=== PATIENT | male | born 1960 | race Caucasian/White ===

== ENCOUNTER 2017-09-22 23:06 | Observation (INO) ==
[2017-09-22] MEDS ORDERED: Aspirin 81 MG TAB.CHEW PO ONE (23:09)
[2017-09-22 23:53] LABS: Bilirubin,Urine Negative (Negative); Blood,Urine Negative (Negative); Clarity,Urine Clear (Clear); Color,Urine Yellow (Yellow); Glucose,Urine (UA) Normal (Normal); Ketones,Urine Negative (Negative); Leukocyte Esterase,Urine Negative (Negative); Nitrite,Urine Negative (Negative); Protein,Urine Trace mg/dL (Neg-Trace); Specific Gravity,Urine 1.028 (1.010-1.025); Urobilinogen,Urine Normal (Normal)
[2017-09-22 23:55] LABS: Bacteria,Urine None Seen per hpf (None-Few); Hyaline Casts,Urine None Seen per lpf (None-Few); Squamous Epithelial Cell,Urine Many per lpf (None-Few); WBC,Urine 0-3 per hpf (0-3)
[2017-09-23 00:13] LABS: Prothrombin Time 10.5 Seconds (9.4-12.1)
[2017-09-23 00:14] LABS: Basophils % 0.4 %; Eosinophils # 0.3 K/mcL (0.0-0.6); Eosinophils % 2.8 %; Hematocrit 43.6 % (37.5-50.1); Hemoglobin 14.8 g/dL (12.9-16.9); Immature Granulocytes % 0.8 % (0-4); Lymphocytes # 2.7 K/mcL (0.6-4.6); Lymphocytes % 24.1 %; Mean Corpuscular HGB Conc 33.9 g/dL (31.6-35.5); Mean Corpuscular Hemoglobin 31.3 pg (28.0-33.3); Mean Corpuscular Volume 92.2 fL (83.0-100.0); Mean Platelet Volume 10.1 fL (9.4-12.4); Monocytes # 1.2 K/mcL (0.0-1.3); Monocytes % 10.7 %; Neutrophils # 6.7 K/mcL (1.6-8.9); Platelet Count 307 K/mcL (140-400); Red Blood Count 4.73 M/mcL (4.19-5.50); Red Cell Distribution Width 12.4 % (11.5-14.5); Segmented Neutrophils % 61.2 %
--- NOTE | 2017-09-23 00:26 | Emergency Department Note ---
Disposition Clinical Impression: Chest pain Qualifiers: Chest pain type: unspecified Qualified Code(s): R07.9 - Chest pain, unspecified Disposition: Admitted As Inpatient Condition: Undetermined Chest Pain HPI - General Chief Complaint: ED Chest Pain Stated Complaint: chest pain Time Seen by Provider: 09/22/17 23:09 Source: patient, EMS Mode of arrival: EMS Limitations: no limitations Vital Signs Reviewed: Yes Nursing Notes Reviewed: Yes - History of Present Illness HPI Narrative: 56-year-old male with a history of hypertension, GERD, EBONI, bipolar disorder, HLD, former smoker presents to the emergency department via EMS for complaints of shortness of breath with exertion followed by chest pain. This chest pain is described as a pressure right in the center of his chest that goes all the way through to his back with radiation down his right arm. This occurred while he was walking quickly while at work. Patient states intermittently over the last week he has had similar symptoms always precluded by shortness of breath with exertion been getting the chest pain coming down and sitting has made the pain go away every time but today. In the EMS patient was given 1 nitroglycerin that was ineffective for his chest pain. Patient denies any recent illnesses, fever, chills, coughing, wheezing, difficulty in swallowing, abdominal pain, edema. Patient states prior to this week he has never had any of these symptoms before. Pt complaint: chest pain Onset (ago): Just [employer] Duration: constant Onset: during exertion Pain Location: substernal, other Severity: mild Severity scale (1-10): 3 Quality: other (Pressure) Pain Radiation: RUE Improves with: rest Worsens with: exertion Treatments prior to arrival chest pain: aspirin, nitroglycerin - Related Data Previous Rx's Medication Instructions Recorded cephALEXin [Keflex] 500 mg PO QID #40 capsule 05/07/15 Allergies Allergy/AdvReac Type Severity Reaction Status Date / Time Sulfa (Sulfonamide AdvReac Hives Verified 05/07/15 18:53 Antibiotics) All systems ED: reviewed and negative except as stated. Review of Systems: As Per HPI Chest Pain PMH - Past Medical History Medical history: Reports: GERD, hypertension Surgical history: Reports: other Psychiatric history: Reports: anxiety, bipolar, depression - Social History Smoking Status: Light tobacco smoker Alcohol use: Reports: none, occasionally Drug use: Reports: none Physical Exam - General Limitations: no limitations General appearance: alert, in no apparent distress, anxious - Head Head exam: atraumatic, normocephalic, normal inspection - Eye Eye exam: Present: normal appearance, PERRL, EOMI - ENT ENT exam: normal exam, normal oropharynx, mucous membranes moist - Neck Neck exam: Present: normal inspection, full ROM, trachea midline - Chest Chest inspection: Present: normal inspection, symmetric chest wall rise - Respiratory Respiratory exam: Present: normal lung sounds bilaterally - Cardiovascular Cardiovascular exam: Present: regular rate, normal rhythm, normal heart sounds - Abdominal Exam Abdominal exam: Present: soft, Non-Tender. Absent: tenderness, distention, guarding, rebound, rigidity - Extremities Exam Extremities exam: Present: normal inspection, full ROM. Absent: tenderness, pedal edema - Expanded Lower Extremity Exam Neurovascular/Tendon exam: Absent: motor deficit, sensory deficit, tendon deficit - Back Exam Back exam: Present: normal inspection, full ROM. Absent: tenderness - Neurological Exam Neurological exam: Present: alert, oriented X3 - Psychiatric Psychiatric exam: Present: anxious - Skin Skin exam: Present: warm, dry, intact, normal color Course Course Narrative: Abdominal obese 56-year-old male who appears anxious. He is nontoxic appearing. Respirations are easy and even. Physical exam benign, low-grade temp of 99, normotensive. EKG reveals sinus rhythm with a ventricular rate of 94, normal axis, normal intervals. He was given 324 mg of aspirin and nitroglycerin with EMS. - Reevaluation(s) Reevaluation #1: D-dimer reveals 695, rest of labs benign. UA benign. Chest x-ray benign. We will get CTA of the chest rule out pulmonary embolism. Patient resting comfortably in his room, no acute distress noted. No change in physical assessment. Time: 01:00 Reevaluation #2: CT reveals no pulmonary embolus however does show asthma. Patient heart score is 6 even with a negative troponin. Repeat EKG without changes. I feel patient would benefit from admission for continued observation as chest pain continues with minimal decreasing, we will attempt morphine. Pt will need cardiology workup for angina. Dr. Moya agreeable to plan of care, he spoke with hospitalist is agreeable to admission. Time: 01:49 Vital Signs Temperature 99.0 F 09/22/17 23:13 Pulse Rate 93 09/22/17 23:13 Respiratory Rate 24 09/22/17 23:13 Blood Pressure 166/94 09/22/17 23:13 O2 Sat by Pulse Oximetry 98 09/22/17 23:13 Temperature 98.7 F 09/23/17 03:34 Pulse Rate 89 09/23/17 03:34 Respiratory Rate 16 09/23/17 03:34 Blood Pressure 128/88 09/23/17 03:34 O2 Sat by Pulse Oximetry 96 09/23/17 04:05 Oxygen Delivery Oxygen Delivery Room Air Chest Pain - Differential Diagnosis Likely: unstable angina pectoris, atypical chest pain, chest pain. Unlikely: fracture of rib, pneumothorax, stable angina, st elevation myocardial infraction , costalchondritis, biliary colic - Lab Data Lab results reviewed: Yes I reviewed the patient's lab results. Result diagrams: 09/22/17 23:23 09/22/17 23:23 Lab Results 09/22/17 09/22/17 09/22/17 Range/Units 23:23 23:23 23:23 WBC 11.0 (4.3-11.1) K/mcL RBC 4.73 (4.19-5.50) M/mcL Hgb 14.8 (12.9-16.9) g/dL Hct 43.6 (37.5-50.1) % MCV 92.2 (83.0-100.0) fL MCH 31.3 (28.0-33.3) pg MCHC 33.9 (31.6-35.5) g/dL RDW 12.4 (11.5-14.5) % Plt Count 307 (140-400) K/mcL MPV 10.1 (9.4-12.4) fL Immature Gran % 0.8 (0-4) % Seg Neutrophils % 61.2 % Lymphocytes % 24.1 % Monocytes % 10.7 % Eosinophils % 2.8 % Basophils % 0.4 % Neutrophils # 6.7 (1.6-8.9) K/mcL Lymphocytes # 2.7 (0.6-4.6) K/mcL Monocytes # 1.2 (0.0-1.3) K/mcL Eosinophils # 0.3 (0.0-0.6) K/mcL Basophils # 0.0 (0.0-0.2) K/mcL PT 10.5 (9.4-12.1) Seconds INR 1.0 APTT 33.0 (26.0-36.0) Seconds D-Dimer 695 H (0-500) ng/mLFEU Sodium 142 (136-145) mEq/L Potassium 4.1 (3.5-5.1) mEq/L Chloride 105 (98-107) mEq/L Carbon Dioxide 21 L (23-29) mEq/L BUN 14 (6-20) mg/dL Creatinine 1.30 (0.70-1.30) mg/dL Est GFR ( Amer) > 60 (> 60) Est GFR (Non-Af Amer) 58 L (> 60) BUN/Creatinine Ratio 11 (6-26) Glucose 90 (70-105) mg/dL Calculated Osmolality 294 (280-300) Calcium 9.8 (8.6-10.3) mg/dL Troponin I < 0.03 (< 0.04) ng/mL Urine Color (Yellow) Urine Clarity (Clear) Urine pH (5.0-8.0) pH Units Ur Specific [place] (1.010-1.025) Urine Protein (Neg-Trace) mg/dL Urine Glucose (UA) (Normal) mg/dL Urine Ketones (Negative) mg/dL Urine Blood (Negative) Urine Nitrite (Negative) Urine Bilirubin (Negative) Urine Urobilinogen (Normal) mg/dL Ur Leukocyte Esterase (Negative) Urine Microscopic RBC (0-3) per hpf Urine Microscopic WBC (0-3) per hpf Ur Squamous Epith Cells (None-Few) per lpf Urine Bacteria (None-Few) per hpf Hyaline Casts (None-Few) per lpf Ur Culture Indicated? (NO) 09/22/17 09/23/17 Range/Units 23:44 05:18 WBC (4.3-11.1) K/mcL RBC (4.19-5.50) M/mcL Hgb (12.9-16.9) g/dL Hct (37.5-50.1) % MCV (83.0-100.0) fL MCH (28.0-33.3) pg MCHC (31.6-35.5) g/dL RDW (11.5-14.5) % Plt Count (140-400) K/mcL MPV (9.4-12.4) fL Immature Gran % (0-4) % Seg Neutrophils % % Lymphocytes % % Monocytes % % Eosinophils % % Basophils % % Neutrophils # (1.6-8.9) K/mcL Lymphocytes # (0.6-4.6) K/mcL Monocytes # (0.0-1.3) K/mcL Eosinophils # (0.0-0.6) K/mcL Basophils # (0.0-0.2) K/mcL PT (9.4-12.1) Seconds INR APTT (26.0-36.0) Seconds D-Dimer (0-500) ng/mLFEU Sodium (136-145) mEq/L Potassium (3.5-5.1) mEq/L Chloride (98-107) mEq/L Carbon Dioxide (23-29) mEq/L BUN (6-20) mg/dL Creatinine (0.70-1.30) mg/dL Est GFR ( Amer) (> 60) Est GFR (Non-Af Amer) (> 60) BUN/Creatinine Ratio (6-26) Glucose (70-105) mg/dL Calculated Osmolality (280-300) Calcium (8.6-10.3) mg/dL Troponin I < 0.03 (< 0.04) ng/mL Urine Color Yellow (Yellow) Urine Clarity Clear (Clear) Urine pH 6.0 (5.0-8.0) pH Units Ur Specific [place] 1.028 H (1.010-1.025) Urine Protein Trace (Neg-Trace) mg/dL Urine Glucose (UA) Normal (Normal) mg/dL Urine Ketones Negative (Negative) mg/dL Urine Blood Negative (Negative) Urine Nitrite Negative (Negative) Urine Bilirubin Negative (Negative) Urine Urobilinogen Normal (Normal) mg/dL Ur Leukocyte Esterase Negative (Negative) Urine Microscopic RBC 3-5 H (0-3) per hpf Urine Microscopic WBC 0-3 (0-3) per hpf Ur Squamous Epith Cells Many H (None-Few) per lpf Urine Bacteria None Seen (None-Few) per hpf Hyaline Casts None Seen (None-Few) per lpf Ur Culture Indicated? NO (NO) - Radiology Data Radiology results reviewed: Yes I reviewed the patient's radiology results. - EKG Data EKG attestation: Yes I reviewed and interpreted this EKG. Heart Score - Score History: Highly Suspicious EKG: Normal Age: 45-65 Risk Factors: Equal/Greater than 3 risk factor or history of atherosclerotic disease Troponin: 1-3x normal limit HEART Score Total: 6
[2017-09-23 00:29] LABS: BUN/Creatinine Ratio 11 (6-26); Blood Urea Nitrogen 14 mg/dL (6-20); Calcium 9.8 mg/dL (8.6-10.3); Carbon Dioxide 21 mEq/L (23-29); Chloride 105 mEq/L (98-107); Glucose 90 mg/dL (70-105); Osmolality,Calculated 294 (280-300); Potassium 4.1 mEq/L (3.5-5.1); Sodium 142 mEq/L (136-145); eGFR For African Americans > 60 (> 60); eGFR For Non-African Americans 58 (> 60)
[2017-09-23 00:31] LABS: Troponin I < 0.03 ng/mL (< 0.04)
[2017-09-23] MEDS ORDERED: Isovue-370 500 ML INFUS..BTL IV ONE (00:41)
[2017-09-23] MEDS ORDERED: Nitroglycerin 1 INCH/GM PACKET TP ONE (01:08)
[2017-09-23] MEDS ORDERED: Nitroglycerin 0.4 MG TAB.SUBL SL PRN (01:10)
--- NOTE | 2017-09-23 01:13 | Emergency Department Note ---
Disposition Clinical Impression: Chest pain Qualifiers: Chest pain type: unspecified Qualified Code(s): R07.9 - Chest pain, unspecified Disposition: Admitted As Inpatient Condition: Good General Adult HPI - General Chief complaint: ED Chest Pain Stated complaint: chest pain Time Seen by Provider: 09/22/17 23:09 Source: patient, EMS Mode of arrival: EMS Limitations: no limitations - History of Present Illness Pain Scale: 3 - Related Data Home Medications Medication Instructions Recorded Confirmed Armodafinil 250 mg PO DAILY 09/23/17 09/23/17 Brexpiprazole [Rexulti] 3 mg PO DAILY 09/23/17 09/23/17 Fenofibrate Nanocrystallized 160 mg PO DAILY 09/23/17 09/23/17 [Triglide] Ondansetron ODT [Zofran ODT] 4 mg PO Q8H PRN 09/23/17 09/23/17 Pantoprazole Sodium 40 mg PO DAILY 09/23/17 09/23/17 Pravastatin Sodium [Pravachol] 80 mg PO HS 09/23/17 09/23/17 Ranitidine HCl [Acid Food Preparer] 150 mg PO BID 09/23/17 09/23/17 Valsartan/Hydrochlorothiazide 1 tab PO DAILY 09/23/17 09/23/17 [Diovan Hct 160-12.5 mg Tab] Vortioxetine Hydrobromide 20 mg PO DAILY 09/23/17 09/23/17 [Trintellix] lamoTRIgine [Lamotrigine] 200 mg PO DAILY 09/23/17 09/23/17 Previous Rx's Medication Instructions Recorded Aspirin 81 mg PO DAILY #30 tab.chew 09/24/17 Allergies Allergy/AdvReac Type Severity Reaction Status Date / Time Sulfa (Sulfonamide AdvReac Hives Verified 09/23/17 11:56 Antibiotics) Past Medical History - Past Medical History Medical history: Reports: GERD, hypertension Surgical history: Reports: other Psychiatric history: Reports: anxiety, bipolar, depression - Social History Smoking Status: Light tobacco smoker Smokeless Tobacco Status: No Alcohol use: Reports: none, occasionally Drug use: Reports: none Physical Exam - General Limitations: no limitations General appearance: alert, in no apparent distress, anxious Course Vital Signs Temperature 99.0 F 09/22/17 23:13 Pulse Rate 93 09/22/17 23:13 Respiratory Rate 24 09/22/17 23:13 Blood Pressure 166/94 09/22/17 23:13 O2 Sat by Pulse Oximetry 98 09/22/17 23:13 Temperature 98.3 F 09/24/17 11:05 Pulse Rate 75 09/24/17 11:05 Respiratory Rate 20 09/24/17 11:05 Blood Pressure 125/78 09/24/17 11:05 O2 Sat by Pulse Oximetry 97 09/24/17 11:05 Oxygen Delivery Oxygen Delivery Room Air Medical Decision Making - Lab Data Result diagrams: 09/24/17 04:11 09/24/17 04:11 Lab Results 09/22/17 09/22/17 09/22/17 Range/Units 23:23 23:23 23:23 WBC 11.0 (4.3-11.1) K/mcL RBC 4.73 (4.19-5.50) M/mcL Hgb 14.8 (12.9-16.9) g/dL Hct 43.6 (37.5-50.1) % MCV 92.2 (83.0-100.0) fL MCH 31.3 (28.0-33.3) pg MCHC 33.9 (31.6-35.5) g/dL RDW 12.4 (11.5-14.5) % Plt Count 307 (140-400) K/mcL MPV 10.1 (9.4-12.4) fL Immature Gran % 0.8 (0-4) % Seg Neutrophils % 61.2 % Lymphocytes % 24.1 % Monocytes % 10.7 % Eosinophils % 2.8 % Basophils % 0.4 % Neutrophils # 6.7 (1.6-8.9) K/mcL Lymphocytes # 2.7 (0.6-4.6) K/mcL Monocytes # 1.2 (0.0-1.3) K/mcL Eosinophils # 0.3 (0.0-0.6) K/mcL Basophils # 0.0 (0.0-0.2) K/mcL PT 10.5 (9.4-12.1) Seconds INR 1.0 APTT 33.0 (26.0-36.0) Seconds D-Dimer 695 H (0-500) ng/mLFEU Sodium 142 (136-145) mEq/L Potassium 4.1 (3.5-5.1) mEq/L Chloride 105 (98-107) mEq/L Carbon Dioxide 21 L (23-29) mEq/L BUN 14 (6-20) mg/dL Creatinine 1.30 (0.70-1.30) mg/dL Est GFR ( Amer) > 60 (> 60) Est GFR (Non-Af Amer) 58 L (> 60) BUN/Creatinine Ratio 11 (6-26) Glucose 90 (70-105) mg/dL Calculated Osmolality 294 (280-300) Calcium 9.8 (8.6-10.3) mg/dL Troponin I < 0.03 (< 0.04) ng/mL Urine Color (Yellow) Urine Clarity (Clear) Urine pH (5.0-8.0) pH Units Ur Specific [place] (1.010-1.025) Urine Protein (Neg-Trace) mg/dL Urine Glucose (UA) (Normal) mg/dL Urine Ketones (Negative) mg/dL Urine Blood (Negative) Urine Nitrite (Negative) Urine Bilirubin (Negative) Urine Urobilinogen (Normal) mg/dL Ur Leukocyte Esterase (Negative) Urine Microscopic RBC (0-3) per hpf Urine Microscopic WBC (0-3) per hpf Ur Squamous Epith Cells (None-Few) per lpf Urine Bacteria (None-Few) per hpf Hyaline Casts (None-Few) per lpf Ur Culture Indicated? (NO) 09/22/17 Range/Units 23:44 WBC (4.3-11.1) K/mcL RBC (4.19-5.50) M/mcL Hgb (12.9-16.9) g/dL Hct (37.5-50.1) % MCV (83.0-100.0) fL MCH (28.0-33.3) pg MCHC (31.6-35.5) g/dL RDW (11.5-14.5) % Plt Count (140-400) K/mcL MPV (9.4-12.4) fL Immature Gran % (0-4) % Seg Neutrophils % % Lymphocytes % % Monocytes % % Eosinophils % % Basophils % % Neutrophils # (1.6-8.9) K/mcL Lymphocytes # (0.6-4.6) K/mcL Monocytes # (0.0-1.3) K/mcL Eosinophils # (0.0-0.6) K/mcL Basophils # (0.0-0.2) K/mcL PT (9.4-12.1) Seconds INR APTT (26.0-36.0) Seconds D-Dimer (0-500) ng/mLFEU Sodium (136-145) mEq/L Potassium (3.5-5.1) mEq/L Chloride (98-107) mEq/L Carbon Dioxide (23-29) mEq/L BUN (6-20) mg/dL Creatinine (0.70-1.30) mg/dL Est GFR ( Amer) (> 60) Est GFR (Non-Af Amer) (> 60) BUN/Creatinine Ratio (6-26) Glucose (70-105) mg/dL Calculated Osmolality (280-300) Calcium (8.6-10.3) mg/dL Troponin I (< 0.04) ng/mL Urine Color Yellow (Yellow) Urine Clarity Clear (Clear) Urine pH 6.0 (5.0-8.0) pH Units Ur Specific [place] 1.028 H (1.010-1.025) Urine Protein Trace (Neg-Trace) mg/dL Urine Glucose (UA) Normal (Normal) mg/dL Urine Ketones Negative (Negative) mg/dL Urine Blood Negative (Negative) Urine Nitrite Negative (Negative) Urine Bilirubin Negative (Negative) Urine Urobilinogen Normal (Normal) mg/dL Ur Leukocyte Esterase Negative (Negative) Urine Microscopic RBC 3-5 H (0-3) per hpf Urine Microscopic WBC 0-3 (0-3) per hpf Ur Squamous Epith Cells Many H (None-Few) per lpf Urine Bacteria None Seen (None-Few) per hpf Hyaline Casts None Seen (None-Few) per lpf Ur Culture Indicated? NO (NO) Attestation Statement - Attestation Attestation: Chest pain that he has had before, comes on with exertion, usually gets better with rest but today did not. He still has some mild chest discomfort at the time my evaluation. Nonradiating, no nausea or diaphoresis. He does have associated shortness of breath. It is worse when he takes a deep breath. No fever or cough, no hemoptysis, no recent travel, trauma or surgery. No history of DVT, PE or cancer. No signs or symptoms of DVT on exam or by history. D- dimer was elevated, CT has been done, reading is pending at the time of dictation. We will repeat an EKG and give him a nitroglycerin trial. His heart score is 6 (2 for history, one for EKG, 2 for risk factors, one for age). He will require admission.
[2017-09-23] MEDS ORDERED: *HR* Morphine Immed Rel 30 MG TABLET PO ONE (01:45)
[2017-09-23] MEDS ORDERED: Naloxone 0.4 MG/ML INJ IVP PRN (04:53)
[2017-09-23] MEDS ORDERED: Acetaminophen 325 MG TABLET PO PRN (04:53)
[2017-09-23] MEDS ORDERED: *HR* HYDROcodone/Acet 5/325 mg TABLET PO PRN (04:53)
--- NOTE | 2017-09-23 05:04 | Internal Med History&Physical ---
Date of Encounter: 09/23/17 Time of Encounter: 04:15 Internal Medicine - H&P: HPI Chief complaint: chest pain Admitted From: Emergency Dept Plans for Post Hospital Care: Home History of present illness: Mr. Telles is a 56 year old male who presents with a 3 week history of exertional chest pain and dyspnea. Symptoms improved with rest, and they worsened with exertion and heavy activity. Tonight, he was at work when he had recurrence of his symptoms. However, this time, his chest pain and dyspnea did not resolve with sitting down and resting. He decided to come to the ER at that point for further evaluation. Workup in the ER was negative except for an elevated d-dimer. CTA of chest was performed and this was negative. Given his cardiac risk factors and symptoms, he was admitted to the hospitalist service for further workup and care. Upon my assessment of the patient, he is currently chest pain-free. He confirms the above history. Cardiac risk factors include hypertension, hyperlipidemia, and smoking history. Family history is negative for heart disease, however. Past Med Surg Social Fam HX - Past Medical History Attestation: Yes The following information was validated with the patient. Source: patient, old records reviewed Medical history: GERD, hyperlipidemia, hypertension Psychiatric history: anxiety, bipolar, depression - Past Surgical History Surgical History: orthopedic, other, tonsilectomy Additional surgical history: Jaw surgery w/ plate - Social History Smoking Status: Light tobacco smoker Smokeless Tobacco Status: No Alcohol use: occasionally Drug use: none Occupational status: employed Current living situation: Home, With Family Recent Out of Country Travel Within the Last 8 Weeks: No - Family History Mother Living Status: Still Living Hx Family Cancer: Yes (Breast Ca.) Hx Family Endocrine Disorder: Yes (DM) Maternal Grandmother Living Status: Cause of : Cancer Hx Family Cancer: Yes Internal Medicine - H&P: Meds cephALEXin [Keflex] 500 mg PO QID #40 capsule 05/07/15 [Rx] 3 Allergy/AdvReac Type Severity Reaction Status Date / Time Sulfa (Sulfonamide AdvReac Hives Verified 05/07/15 18:53 Antibiotics) - Constitutional Constitutional: no chills, no fever(s), no night sweats - EENT Eyes: no change in vision Ears: no ear pain, no tinnitus Nose, mouth and throat: no nasal congestion, no sore throat - Cardiovascular Cardiovascular ROS IM: chest pain, diaphoresis, dyspnea, dyspnea on exertion, no orthopnea, no paroxysmal nocturnal dyspnea, no syncope - Respiratory Respiratory: no cough, no hemoptysis - Gastrointestinal Gastrointestinal: no abdominal pain, no diarrhea, no hematemesis, no hematochezia, no melena, no vomiting - Genitourinary Genitourinary ROS male: no dysuria, no flank pain, no hematuria - Musculoskeletal Musculoskeletal ROS IM: no arthralgias, no back pain - Integumentary Integumentary IM: no rash, no jaundice - Neurological Neurological ROS: no dizziness, no focal weakness, no frequent falls, no headache(s) - Psychiatric Psychiatric: no anxiety, no depression - Endocrine Endocrine IM: no polydipsia, no polyuria - Allergic/Immunologic Allergic/Immunologic: no wheezing, no GI upset with certain foods - Constitutional Vitals: Temp Pulse Resp BP Pulse Ox 98.7 F 89 16 128/88 96 09/23/17 03:34 09/23/17 03:34 09/23/17 03:34 09/23/17 03:34 09/23/17 04:05 General appearance: Present: cooperative, A&O X 3, pleasant, no acute distress - Head Head exam: Present: normal inspection - Eye Eye exam: Present: EOMI, PERRL. Absent: scleral icterus Pupils: Present: normal accommodation - ENT ENT exam: Present: mucous membranes dry, normal exam, normal oropharynx - Neck Neck exam general surgery: Present: full ROM, supple. Absent: tenderness, nuchal rigidity, thyromegaly - Respiratory Respiratory exam: Present: CTAB. Absent: chest wall tenderness, rales, respiratory distress, rhonchi, wheezes - Cardiovascular Cardiovascular exam: Present: RRR, +S1, +S2. Absent: diastolic murmur, systolic murmur - GI/Abdominal GI/Abdominal exam: Present: soft. Absent: guarding, hepatomegaly, mass, rebound , splenomegaly, tenderness - Extremities Exam Extremities exam: Present: full ROM, warm, radial pulses palpable and symmetrical. Absent: calf tenderness, pedal edema, tenderness - Back Exam Back exam: Present: normal inspection. Absent: CVA tenderness (L), CVA tenderness (R) - Neurological Exam Neurological exam: Present: alert, CN II-XII intact, oriented X3, no focal deficits - Psychiatric Psychiatric exam: Present: normal affect, normal mood - Skin Skin exam: Present: dry, warm. Absent: rash Internal Med - H&P Results - Labs CBC & Chem 7: 09/22/17 23:23 09/22/17 23:23 - EKG Data -: EKG Interpreted by Myself - EKG Data Prior EKG available for review: yes When compared to previous EKG: there is no significant change EKG comments: 09/23/17 05:08 NSR; borderline LVH; no acute changes - Diagnostic Studies Chest x-ray Status: image reviewed by me (negative) - Assessment and plan (1) Chest pain Current Visit: Yes Status: Acute Assessment and plan: 1. History is very suggestive of angina. 2. Will repeat troponin onw and order stress test for this morning. 3, Will order ECHO as well given LVH findings on EKG. 4. Will start patient on ASA. 5. Consult cardiology if stress test abnormal. Qualifiers: Chest pain type: chest pain due to myocardial ischemia Ischemic chest pain type: stable angina pectoris Qualified Code(s): I20.8 - Other forms of angina pectoris (2) Hypertension Current Visit: Yes Status: Chronic Assessment and plan: 1. Monitor BP and treat per home medication once med list obtained and verified. 2. Current BP WNL. Qualifiers: Hypertension type: essential hypertension Qualified Code(s): I10 - Essential (primary) hypertension (3) DVT prophylaxis Current Visit: Yes Status: Acute Assessment and plan: 1. Heparin SQ.
[2017-09-23] MEDS: *HR* Heparin 5,000 UNIT/ML VIAL SQ SCH ×2 (05:57→17:31)
--- NOTE | 2017-09-23 06:44 | Electrocardiograph Report ---
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
--- NOTE | 2017-09-23 06:45 | Electrocardiograph Report ---
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
--- NOTE | 2017-09-23 06:46 | Electrocardiograph Report ---
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
[2017-09-23 10:02] LABS: Chol/HDL Ratio 5.7 (0-4.9)
[2017-09-23 11:59] LABS: Estimated Average Glucose 117 mg/dl; Hemoglobin A1C 5.7 %
--- NOTE | 2017-09-23 12:47 | Internal Med Progress Note ---
Date of Encounter: 09/23/17 Time of Encounter: 11:45 - Assessment and plan (1) Chest pain Current Visit: Yes Status: Acute Assessment and plan: Pt reports "a couple week" history of sexual chest pain with associated dyspnea. The pain would improve with rest, would become worse with exertion. Patient states that the pain that precipitated his visit to the emergency department was not relieved with rest. Currently reports that this pain is 1-2/ 10 and that he did have some shortness of breath. He denies any nausea, vomiting, diaphoresis, radiation of pain. He denies any headache, abdominal pain. Troponins have been negative. Cholesterol elevated 222, triglycerides elevated at 253, HDL is low at 39. A1c is 5.7%. Echo showed an LVEF of 60% with mild LV DD, no significant valvular dysfunction. Stress test date 2 tomorrow Continue telemetry Continue monitor labs and patient condition Treat chest pain with nitroglycerin and aspirin. Qualifiers: Chest pain type: chest pain due to myocardial ischemia Ischemic chest pain type: stable angina pectoris Qualified Code(s): I20.8 - Other forms of angina pectoris (2) Hypertension Current Visit: Yes Status: Chronic Assessment and plan: Chronic. Stable. Continue home medications. Qualifiers: Hypertension type: essential hypertension Qualified Code(s): I10 - Essential (primary) hypertension (3) DVT prophylaxis Current Visit: Yes Status: Acute Assessment and plan: Heparin (4) Hyperlipidemia Current Visit: Yes Status: Acute Assessment and plan: Patient will be started on a low-dose statin. Counseled on lifestyle modifications. Qualifiers: Hyperlipidemia type: unspecified Qualified Code(s): E78.5 - Hyperlipidemia , unspecified - Time Spent With Patient Total time spent is greater than 50% in coordination of care (as documented) at patient's floor/unit and/or counseling patient: less than 15 minutes - Subjective Interval history: Pt alert, awake, oriented, answers questions appropriately. He now states that pain currently is 1-2/10 and remains intermittent. Denies associated symptoms of SOB, n/v, diaphoresis, and there is no radiation of the pain. Pt is mildly SOB at rest. He is aware that he is a 2 day stress test and will complete the 2nd part tomorrow. - Constitutional Vitals: Temp Pulse Resp BP Pulse Ox 98.7 F 75 16 121/82 93 09/23/17 11:43 06/19/18 11:43 09/23/17 11:43 09/23/17 11:43 09/23/17 11:43 General appearance: Present: cooperative, A&O X 3, pleasant, no acute distress, obese, answers questions appropriately - Head Head exam: Present: atraumatic, normal inspection, normocephalic - Eye Eye exam: Present: normal appearance, conjuntiva pink, sclera anicteric - Neck Neck exam general surgery: Present: supple, trachea midline. Absent: lymphadenopathy, tenderness - Respiratory Respiratory exam: Present: CTAB. Absent: accessory muscle use, chest wall tenderness, rales, respiratory distress, rhonchi, wheezes - Cardiovascular Cardiovascular exam: Present: RRR, +S1, +S2. Absent: diastolic murmur, gallop, rubs, systolic murmur - GI/Abdominal GI/Abdominal exam: Present: normal bowel sounds, soft. Absent: distended, hepatomegaly, tenderness - Extremities Exam Extremities exam: Present: normal capillary refill, normal inspection, warm, radial pulses palpable and symmetrical. Absent: calf tenderness, cyanotic, pedal edema, tenderness - Neurological Exam Neurological exam: Present: alert, oriented X3, no focal deficits. Absent: facial droop, speech deficit - Skin Skin exam: Present: dry, intact, normal color, warm. Absent: rash Internal Medicine: Result - Labs CBC & Chem 7: 09/22/17 23:23 09/22/17 23:23 Labs: Cardiac Enzymes 09/23/17 Range/Units 05:18 Troponin I < 0.03 (< 0.04) ng/mL - ABG Interpretation ABG results: PT/INR, D-dimer PT 10.5 Seconds (9.4-12.1) 09/22/17 23:23 D-Dimer 695 ng/mLFEU (0-500) H 09/22/17 23:23 - Impressions Impressions Echocardiogram 09/23/17 04:53 Impressions: LVEF 60%. Normal LV chamber size, wall thickness and function. Mild left ventricular diastolic dysfunction. Normal right ventricular structure and function. No evidence of pulmonary hypertension. No significant valvular dysfunction. Left Ventricular Wall Motion: Rest Echo Findings All wall segments showed normal motion. Findings: Study Quality * Technically adequate exam. ECG Findings * Normal sinus rhythm. Left Ventricle * LVEF 60%. * Normal LV chamber size, wall thickness and function. * Mild left ventricular diastolic dysfunction. Right Ventricle * Normal right ventricular structure and function. Left Atrium * Normal left atrial size. Right Atrium * Normal right atrial size. Aortic Valve * Aortic valve not well visualized. * No aortic regurgitation. * No aortic stenosis. Mitral Valve * Normal mitral valve structure and function. * No mitral regurgitation. * No mitral stenosis. Tricuspid Valve * Normal tricuspid valve structure and function. * Trace tricuspid regurgitation. * No evidence of pulmonary hypertension. Pulmonic Valve * Pulmonic valve is not well visualized. * No pulmonic regurgitation. Aorta * Normally sized aortic root. Pericardium * The pericardium appears normal. IVC * Normal IVC dimensions and inspiratory collapse. Pulmonary Artery * Normal visualized portions of the main pulmonary artery. Consult Discharge Plan - Plan Referrals: Hiren Vazquez MD [Primary Care Provider] - 09/30/17 11:30 am
[2017-09-23] MEDS: Aspirin 81 MG TAB.CHEW PO SCH (14:03)
[2017-09-23] MEDS: Ondansetron ODT 4 MG TAB.RAPDIS PO PRN (22:48)
[2017-09-23] MEDS: (Vortioxetine Hydrobromide [Trintellix] 20 MG) PO SCH (22:49)
[2017-09-23] MEDS: (Brexpiprazole [Rexulti] 3 MG) PO SCH (22:49)
[2017-09-24 05:29] LABS: Basophils % 0.5 %; Eosinophils # 0.2 K/mcL (0.0-0.6); Eosinophils % 2.8 %; Hematocrit 41.4 % (37.5-50.1); Hemoglobin 13.6 g/dL (12.9-16.9); Immature Granulocytes % 0.9 % (0-4); Immature Platelets 2.8 % (1.1-6.1); Lymphocytes % 24.7 %; Mean Corpuscular HGB Conc 32.9 g/dL (31.6-35.5); Mean Corpuscular Hemoglobin 30.3 pg (28.0-33.3); Mean Corpuscular Volume 92.2 fL (83.0-100.0); Mean Platelet Volume 9.8 fL (9.4-12.4); Monocytes # 0.9 K/mcL (0.0-1.3); Monocytes % 11.8 %; Neutrophils # 4.7 K/mcL (1.6-8.9); Platelet Count 280 K/mcL (140-400); Red Blood Count 4.49 M/mcL (4.19-5.50); Red Cell Distribution Width 12.4 % (11.5-14.5); Segmented Neutrophils % 59.3 %
[2017-09-24 05:42] LABS: BUN/Creatinine Ratio 15 (6-26); Blood Urea Nitrogen 15 mg/dL (6-20); Calcium 9.6 mg/dL (8.6-10.3); Carbon Dioxide 23 mEq/L (23-29); Chloride 107 mEq/L (98-107); Glucose 103 mg/dL (70-105); Osmolality,Calculated 291 (280-300); Potassium 3.7 mEq/L (3.5-5.1); Sodium 140 mEq/L (136-145); eGFR For African Americans > 60 (> 60); eGFR For Non-African Americans > 60 (> 60)
[2017-09-24] MEDS: *HR* Heparin 5,000 UNIT/ML VIAL SQ SCH (05:59)
[2017-09-24] MEDS: (Brexpiprazole [Rexulti] 3 MG) PO SCH (07:47)
[2017-09-24] MEDS: (Vortioxetine Hydrobromide [Trintellix] 20 MG) PO SCH (07:47)
[2017-09-24] MEDS: Ondansetron ODT 4 MG TAB.RAPDIS PO PRN (08:21)
[2017-09-24] MEDS: Aspirin 81 MG TAB.CHEW PO SCH (08:21)
[2017-09-24 11:08] VITALS: BP 125/78
--- NOTE | 2017-09-24 13:56 | Discharge Summary ---
- NOTES TO OUTPATIENT PROVIDER Notes to Outpatient Provider: Patient was admitted for chest pain with exertion , relieved with rest. Patient reports he was prompted to come to the emergency room when the pain was not relieved with rest a longer period signs are negative 3, EKG was normal sinus rhythm with no acute ST changes. Patient had negative stress test today. A1c is in prediabetes range at 5.7%, lipid panel is reflective of hyperlipidemia patient has been started on a statin. Today during physical exam, pain was noted to be reproducible with deep inspiration and palpation, likely chest wall pain. Recommend follow-up with primary care if chest pain continues. Orders not resulted at time of discharge: Pending orders 09/23/17 04:58 NM kenneth perf SPECT multi [NM] Routine Date of Encounter: 09/24/17 Time of Encounter: 08:50 - Discharge Diagnosis (1) Chest pain Priority: Primary Status: Acute Assessment and Plan: Pt reports "a couple week" history of exertional chest pain with associated dyspnea. The pain would improve with rest, would become worse with exertion. Today pain is intermittent and he is pain free on exam, however, the pain is reproducible with deep inspiration and palpation, likely chest wall pain. He denies any nausea, vomiting, diaphoresis, radiation of pain. He denies any headache, abdominal pain. Troponins have been negative. Cholesterol elevated 222, triglycerides elevated at 253, HDL is low at 39. A1c is 5.7%. Echo showed an LVEF of 60% with mild LV DD, no significant valvular dysfunction. Stress test negative for ischemia or infarct. Pt has been started on ASA and statin Follow with PCP for continued evaluation if chest pain persists. Qualifiers: Chest pain type: chest pain due to myocardial ischemia Ischemic chest pain type: stable angina pectoris Qualified Code(s): I20.8 - Other forms of angina pectoris (2) Hypertension Priority: Secondary Status: Chronic Assessment and Plan: Chronic. Stable. Continue home medications. Qualifiers: Hypertension type: essential hypertension Qualified Code(s): I10 - Essential (primary) hypertension (3) DVT prophylaxis Priority: Secondary Status: Acute Assessment and Plan: Heparin SQ BID (4) Hyperlipidemia Priority: Secondary Status: Acute Assessment and Plan: Patient will be started on a low-dose statin. Counseled on lifestyle modifications including diet and exercise modifications. Pt verbalized understanding and agreement. Qualifiers: Hyperlipidemia type: unspecified Qualified Code(s): E78.5 - Hyperlipidemia , unspecified (5) Prediabetes Priority: Secondary Status: Acute Assessment and Plan: A1c 5.7%, in prediabetes range. Patient denied discussed diet modification and increased exercise in relation to decreasing A1c, as well as reducing risk factor for coronary artery disease. Hospital course: Mr. Telles is a 56 year old male with past medical history of hypertension and hyperlipidemia. Patient presented to the emergency department with chest pain that was relieved with rest, worsened by exertion. Patient had symptoms for couple weeks, today for admission the chest pain was not relieved with rest, this was concerning to the patient. Troponins negative, EKG normal sinus without ST changes, TTE showed an LVEF of 60%, mild LV DD, no significant valvular dysfunction. Patient had negative stress test. Today during physical exam, pain is reproducible with deep inspiration and palpation. Likely chest wall pain. Recommend patient follow with primary care , and states for pain and discomfort. Patient is in no obvious distress, and his lungs are clear throughout. Patient is on fenofibrate as well as a statin for hyperlipidemia, continue antihypertensives. A1c 5.7%. Patient denied discussed diet and lifestyle modifications to decrease cardiac risk factors as well as liver A1c. Labs and vitals are stable and he is appropriate for discharge. Discharge discussed with: patient - Time Spent with Patient Total time spent providing and/or coordinating discharge services: Less than 30 minutes - Discharge Medications Prescriptions: Aspirin 81 mg PO DAILY #30 tab.chew Home Medications: Armodafinil 250 mg PO DAILY 09/23/17 [History] Brexpiprazole [Rexulti] 3 mg PO DAILY 09/23/17 [History] Fenofibrate Nanocrystallized [Triglide] 160 mg PO DAILY 09/23/17 [History] Ondansetron ODT [Zofran ODT] 4 mg PO Q8H PRN 09/23/17 [History] Pantoprazole Sodium 40 mg PO DAILY 09/23/17 [History] Pravastatin Sodium [Pravachol] 80 mg PO HS 09/23/17 [History] Ranitidine HCl [Acid Console Attendant] 150 mg PO BID 09/23/17 [History] Valsartan/Hydrochlorothiazide [Diovan Hct 160-12.5 mg Tab] 1 tab PO DAILY [History] Vortioxetine Hydrobromide [Trintellix] 20 mg PO DAILY 09/23/17 [History] lamoTRIgine [Lamotrigine] 200 mg PO DAILY 09/23/17 [History] Aspirin 81 mg PO DAILY #30 tab.chew 09/24/17 [Rx] Allergies/Adverse Reactions: 3 Allergy/AdvReac Type Severity Reaction Status Date / Time Sulfa (Sulfonamide AdvReac Hives Verified 09/23/17 11:56 Antibiotics) Date of admission: 09/23/17 02:09 Primary care physician: Hiren Vazquez MD Discharging clinician: Soraya Sepulveda Anticipated date of discharge: 09/24/17 - Constitutional Vitals: Temp Pulse Resp BP Pulse Ox 98.3 F 75 20 125/78 97 09/24/17 11:05 09/24/17 11:05 09/24/17 11:05 09/24/17 11:05 09/24/17 11:05 General appearance: Present: cooperative, A&O X 3, pleasant, no acute distress, obese, answers questions appropriately - Head Head exam: Present: atraumatic, normal inspection, normocephalic - Eye Eye exam: Present: normal appearance, conjuntiva pink, sclera anicteric - Neck Neck exam general surgery: Present: supple, trachea midline. Absent: lymphadenopathy, tenderness - Respiratory Respiratory exam: Present: CTAB. Absent: accessory muscle use, chest wall tenderness, rales, rhonchi, wheezes - Cardiovascular Cardiovascular exam: Present: RRR, +S1, +S2. Absent: diastolic murmur, gallop, rubs, systolic murmur - GI/Abdominal GI/Abdominal exam: Present: normal bowel sounds, soft. Absent: distended, hepatomegaly, tenderness - Extremities Exam Extremities exam: Present: warm, radial pulses palpable and symmetrical. Absent : calf tenderness, cyanotic, pedal edema - Neurological Exam Neurological exam: Present: alert, oriented X3, no focal deficits. Absent: facial droop, speech deficit - Skin Skin exam: Present: dry, intact, normal color, warm. Absent: rash - Patient Status Disposition: Home, Self-Care Condition: Good Functional capacity at discharge: independent ambulation Overall status at discharge: patient is back to baseline - Discharge Instructions Follow Up With: Hiren Vazquez MD [Primary Care Provider] - 09/30/17 11:30 am Additional Instructions: Follow-up appointments: If there is not an appointment listed below, please call your physician and schedule a follow-up appointment. Please see your PCP in the next 5-7 days. Medication List: Carry an up to date list of medications you are taking at all time. We have given you an updated medication list including any new medications that you have been prescribed. Please provide that list to your primary provider Your new prescription is at your pharmacy. Resume your normal medications. Symptoms: If your condition changes or you experience any of the following symptoms, notify your physician immediately: Unusual or worsening pain, fever, persistent nausea and vomiting, bleeding, increase in swelling (especially in your legs), sudden weight gain, extreme dizziness, chest pain, increased drainage or redness from a wound or incision. Go to the emergency department if you experience a problem with breathing. Weights: If you have a history of swelling or shortness of breath, weigh yourself daily and notify your physician if you have a weight gain of two or more pounds in one day or 5 or more pounds in a week. If you experience any of the warning signs for stroke: Sudden numbness or weakness of the face, arm or leg; especially on one side of the body, sudden confusion, trouble speaking or understanding, sudden trouble seeing in one or both eyes, sudden trouble walking, dizziness, loss of balance or coordination, sudden sever headache with no cause; Call 911 or go to the emergency room. Stroke is a medical emergency. Some risk factors for stroke: Age, cigarette smoking, diabetes, excessive alcohol consumption, family history , high blood pressure, overweight, physical inactivity, prior stroke, heart attack, diagnosis of carotid artery stenosis or other artery disease. If you smoke, STOP: Smoking or tobacco use significantly increases your risk of heart and lung disease. Your chance of disease greatly increases if you continue to smoke. For more information, call the [place] tobacco quit line for smoking cessation - QUIT-NOW ( ) - Diet and Activity Activity: increase activity as tolerated Diet: diabetic diet, low fat, low cholesterol, low salt diet
== END 2017-09-24 15:17 | disposition home or self-care (01) ==
LOC: EMEROO 23:06 → 3BNU 23:06
PROVIDERS: ADMIT Pediatrics; ATTEND Family Medicine

== ENCOUNTER 2018-05-11 17:33 | Observation (INO) ==
[2018-05-11] MEDS ORDERED: Aspirin 81 MG TAB.CHEW PO ONE (17:35)
[2018-05-11] MEDS ORDERED: 0.9 % Sodium Chloride 500 ML IVC ONE (17:35)
[2018-05-11] MEDS ORDERED: Nitroglycerin 0.4 MG TAB.SUBL SL ONE (17:41)
--- NOTE | 2018-05-11 18:05 | Emergency Department Note ---
Disposition Clinical Impression: Atypical chest pain, NAVIN (acute kidney injury) Disposition: Admitted As Inpatient Condition: Good Forms: ED Satisfaction Letter Time of Disposition: 19:28 Chest Pain HPI - General Stated Complaint: cp Time Seen by Provider: 05/11/18 17:34 Source: patient Mode of arrival: EMS Limitations: no limitations Vital Signs Reviewed: Yes Nursing Notes Reviewed: Yes - History of Present Illness HPI Narrative: Patient is a 57-year-old male with past medical history of stent placement of one stent in December 2017 that began to experience mid sternal chest pressure today around 1500 while he was at work he describes it as a pressure that does not radiate was accompanied by diaphoresis and nausea and is categorized as a 4 out of 10 in severity. Patient denies any visual changes, fevers or chills, or family history of cardiac problems. Patient is endorsing some mid epigastric pain that also started with the chest pain. Patient is also endorsing flu-like symptoms since he was off work so he spent the 4 days in bed hoping that he would feel better today was his first day back at work. Patient states that he has a history of acid reflux and hypertension for which she takes medication, he smokes a pipe every once in a while but nothing regularly, drinks 7 drinks per week, and denies illicit drugs. Pt received one nitro spray en route with EMS and states that his pain is now 3/10. Severity scale (1-10): 10 - Related Data Home Medications Medication Instructions Recorded Confirmed Armodafinil 250 mg PO DAILY 09/23/17 10/31/17 Brexpiprazole [Rexulti] 3 mg PO DAILY 09/23/17 10/31/17 Fenofibrate Nanocrystallized 160 mg PO DAILY 09/23/17 10/31/17 [Triglide] Ondansetron ODT [Zofran ODT] 4 mg PO Q8H PRN 09/23/17 10/31/17 Pantoprazole Sodium 40 mg PO DAILY 09/23/17 10/31/17 Pravastatin Sodium [Pravachol] 80 mg PO HS 09/23/17 10/31/17 Ranitidine HCl [Acid Mechanical Technologist] 150 mg PO BID 09/23/17 10/31/17 Valsartan/Hydrochlorothiazide 1 tab PO DAILY 09/23/17 10/31/17 [Diovan Hct 160-12.5 mg Tab] Vortioxetine Hydrobromide 20 mg PO DAILY 09/23/17 10/31/17 [Trintellix] lamoTRIgine [Lamotrigine] 200 mg PO DAILY 09/23/17 10/31/17 Loratadine [Allergy Relief] 10 mg PO DAILY 10/31/17 10/31/17 Zolpidem Tartrate [Ambien Cr] 6.25 mg PO QPM PRN 10/31/17 10/31/17 Previous Rx's Medication Instructions Recorded Aspirin 81 mg PO DAILY #30 tab.chew 09/24/17 Ticagrelor [Brilinta] 90 mg PO BID #60 tablet 11/01/17 Allergies Allergy/AdvReac Type Severity Reaction Status Date / Time Sulfa (Sulfonamide AdvReac Hives Verified 09/23/17 11:56 Antibiotics) All systems ED: reviewed and negative except as stated. Review of Systems: As Per HPI Constitutional: Denies: fever, chills Eyes: Denies: eye pain, vision change Cardiovascular: Reports: chest pain. Denies: dyspnea on exertion Respiratory: Denies: cough, dyspnea Gastrointestinal: Reports: abdominal pain, nausea. Denies: vomiting, diarrhea, constipation Genitourinary: Denies: urgency, dysuria Musculoskeletal: Denies: back pain Integumentary: Denies: rash Neurological: Denies: headache Chest Pain PMH - Past Medical History Medical history: Reports: GERD, hypertension Surgical history: Reports: tonsilectomy Psychiatric history: Reports: anxiety, bipolar, depression - Social History Smoking Status: Light tobacco smoker Alcohol use: Reports: none, occasionally Drug use: Reports: none Physical Exam - General Limitations: no limitations General appearance: alert - Head Head exam: atraumatic, normocephalic - Eye Eye exam: Present: normal appearance, PERRL, EOMI - ENT ENT exam: normal exam, normal oropharynx, mucous membranes moist - Neck Neck exam: Present: normal inspection, full ROM - Chest Chest inspection: Present: normal inspection, symmetric chest wall rise. Absent: tenderness - Respiratory Respiratory exam: Present: normal lung sounds bilaterally. Absent: respiratory distress, wheezes - Cardiovascular Cardiovascular exam: Present: regular rate, normal rhythm - Expanded Cardiovascular Exam Peripheral pulses: 2+: radial (R), radial (L), posterior tibialis (R), posterior tibialis (L) - Abdominal Exam Abdominal exam: Present: soft, tenderness Abdominal tenderness: Present: epigastrium - Extremities Exam Extremities exam: Present: normal inspection, full ROM - Back Exam Back exam: Present: normal inspection, full ROM - Neurological Exam Neurological exam: Present: alert, oriented X3 - Psychiatric Psychiatric exam: Present: normal affect, normal mood - Skin Skin exam: Present: warm, dry, intact Course Course Narrative: Pt has hx of stent placement, will get labs for ACS r/o to include EKG, CBC, BMP, troponin, CXR. - Reevaluation(s) Reevaluation #1: Pt stated that his pain was resolved after 2 nitro and 4mg of Morphine. He continues to endorse some mild epigastric pain that he characterized as a 1/10 in severity. Time: 18:44 Vital Signs Temperature 101.0 F H 05/11/18 17:48 Pulse Rate 109 05/11/18 17:48 Respiratory Rate 19 05/11/18 17:48 Blood Pressure 128/76 05/11/18 17:48 O2 Sat by Pulse Oximetry 99 05/11/18 17:48 Temperature 101.0 F H 05/11/18 17:48 Pulse Rate 109 05/11/18 17:48 Respiratory Rate 19 05/11/18 17:48 Blood Pressure 128/76 05/11/18 17:48 O2 Sat by Pulse Oximetry 98 05/11/18 17:50 Oxygen Delivery Oxygen Delivery Room Air Chest Pain - MDM Narrative Medical decision making narrative: Pt's initial troponin was negative, two EKGs did not demonstrate changes from previous studies, and pain resolved after two nitro and 4mg of morphine. Pt's lab work revealed elevated creatinine at 2.34 without previous values in this range, so patient was given 1L NaCl bolus. Pt continued to have vague epigastric pain that had begun with the chest pain that did not resolve with any of the above treatments. Given patient's previous history of negative workup with blockage requiring stenting, pt will need to be admitted for ACS r/o. Spoke with Dr. Coppola, hospitalist, who agreed to accept the patient. Spoke with patient who verbalized understanding and agreement with the plan. Pt was given an opportunity to ask questions and all of his concerns were addressed. Pt remained stable while in the department and pain improved during treatment. - Medical Records Medical records reviewed: Yes I reviewed the patient's medical records. - Lab Data Lab results reviewed: Yes I reviewed the patient's lab results. Result diagrams: 05/11/18 18:00 05/11/18 18:00 Lab Results 05/11/18 05/11/18 05/11/18 Range/Units 18:00 18:00 18:00 WBC 10.1 (4.3-11.1) K/mcL RBC 4.99 (4.19-5.50) M/mcL Hgb 14.9 (12.9-16.9) g/dL Hct 44.8 (37.5-50.1) % MCV 89.8 (83.0-100.0) fL MCH 29.9 (28.0-33.3) pg MCHC 33.3 (31.6-35.5) g/dL RDW 12.4 (11.5-14.5) % Plt Count 368 (140-400) K/mcL MPV 9.4 (9.4-12.4) fL Immature Gran % 0.7 (0-4) % Seg Neutrophils % 74.4 % Lymphocytes % 12.2 % Monocytes % 12.0 % Eosinophils % 0.4 % Basophils % 0.3 % Neutrophils # 7.5 (1.6-8.9) K/mcL Lymphocytes # 1.2 (0.6-4.6) K/mcL Monocytes # 1.2 (0.0-1.3) K/mcL Eosinophils # 0.0 (0.0-0.6) K/mcL Basophils # 0.0 (0.0-0.2) K/mcL PT 12.1 (9.4-12.1) Seconds INR 1.1 APTT 35.2 (26.0-36.0) Seconds Heparin Anti-Xa, Unfract (0.30-0.70) IU/mL Sodium (136-145) mEq/L Potassium (3.5-5.1) mEq/L Chloride (98-107) mEq/L Carbon Dioxide (23-29) mEq/L BUN (6-20) mg/dL Creatinine (0.70-1.30) mg/dL Est GFR ( Amer) (> 60) Est GFR (Non-Af Amer) (> 60) BUN/Creatinine Ratio (6-26) Glucose (70-105) mg/dL Calculated Osmolality (280-300) Calcium (8.6-10.3) mg/dL Troponin I (< 0.04) ng/mL B-Natriuretic Peptide 9 (Less than 100) pg/mL 05/11/18 05/11/18 Range/Units 18:00 18:02 WBC (4.3-11.1) K/mcL RBC (4.19-5.50) M/mcL Hgb (12.9-16.9) g/dL Hct (37.5-50.1) % MCV (83.0-100.0) fL MCH (28.0-33.3) pg MCHC (31.6-35.5) g/dL RDW (11.5-14.5) % Plt Count (140-400) K/mcL MPV (9.4-12.4) fL Immature Gran % (0-4) % Seg Neutrophils % % Lymphocytes % % Monocytes % % Eosinophils % % Basophils % % Neutrophils # (1.6-8.9) K/mcL Lymphocytes # (0.6-4.6) K/mcL Monocytes # (0.0-1.3) K/mcL Eosinophils # (0.0-0.6) K/mcL Basophils # (0.0-0.2) K/mcL PT (9.4-12.1) Seconds INR APTT (26.0-36.0) Seconds Heparin Anti-Xa, Unfract 0.00 L (0.30-0.70) IU/mL Sodium 139 (136-145) mEq/L Potassium 3.7 (3.5-5.1) mEq/L Chloride 103 (98-107) mEq/L Carbon Dioxide 22 L (23-29) mEq/L BUN 17 (6-20) mg/dL Creatinine 2.34 H (0.70-1.30) mg/dL Est GFR ( Amer) 35 L (> 60) Est GFR (Non-Af Amer) 29 L (> 60) BUN/Creatinine Ratio 7 (6-26) Glucose 101 (70-105) mg/dL Calculated Osmolality 290 (280-300) Calcium 10.2 (8.6-10.3) mg/dL Troponin I 0.03 (< 0.04) ng/mL B-Natriuretic Peptide (Less than 100) pg/mL - Radiology Data Radiology results reviewed: Yes I reviewed the patient's radiology results. Chest X-Ray 05/11/18 17:35 IMPRESSION: No acute process. D/ / Melquiades Davila MD / Melquiades Davila MD Interpreting Provider: Melquiades Davila MD - EKG Data EKG attestation: Yes I reviewed and interpreted this EKG. EKG results narrative: 1751: HR 107, rhythm sinus tachycardia, axis left at -27. GA 178, QRS 91, QTc 438. No evidence of ST elevation or depression. Poor R wave progression with transition V5-V6. 1815: HR 119, rhythm sinus tachycardia, axis left at -29. GA 165, QRS 88, QTc 451. No evidence of ST elevation or depression. Poor R wave progression with transition V5-V6. No significant changes from previous study from 10/31/2017. Heart Score - Score History: Highly Suspicious EKG: Normal Age: 45-65 Risk Factors: Equal/Greater than 3 risk factor or history of atherosclerotic disease Troponin: Less than normal limit HEART Score Total: 5 Attestation Statement - Attestation Attestation: I, Dipesh Nuñez DO, examined this patient [id number] and my medical decision-making was reviewed with Dr. Mary Reza, Resident Physician. I agree with the documented findings, disposition and treatment plan as described except to the extent set forth below. Please see my progress notes for details.
[2018-05-11] MEDS ORDERED: *HR* Morphine 2 MG/ML SYRINGE IVP ONE ×2 (18:13→18:19)
[2018-05-11 18:19] LABS: Basophils % 0.3 %; Eosinophils % 0.4 %; Hematocrit 44.8 % (37.5-50.1); Hemoglobin 14.9 g/dL (12.9-16.9); Immature Granulocytes % 0.7 % (0-4); Lymphocytes # 1.2 K/mcL (0.6-4.6); Lymphocytes % 12.2 %; Mean Corpuscular HGB Conc 33.3 g/dL (31.6-35.5); Mean Corpuscular Hemoglobin 29.9 pg (28.0-33.3); Mean Corpuscular Volume 89.8 fL (83.0-100.0); Mean Platelet Volume 9.4 fL (9.4-12.4); Monocytes # 1.2 K/mcL (0.0-1.3); Neutrophils # 7.5 K/mcL (1.6-8.9); Platelet Count 368 K/mcL (140-400); Red Blood Count 4.99 M/mcL (4.19-5.50); Red Cell Distribution Width 12.4 % (11.5-14.5); Segmented Neutrophils % 74.4 %
[2018-05-11] MEDS ORDERED: *HR* Heparin 5,000 UNIT/ML VIAL IVP ONE (18:20)
[2018-05-11] MEDS ORDERED: *HR* Heparin 5,000 UNIT/ML VIAL IVP PRN (18:20)
[2018-05-11 18:28] LABS: INR 1.1; Prothrombin Time 12.1 Seconds (9.4-12.1)
[2018-05-11 18:31] LABS: Activated Partial Thrombo Time 35.2 Seconds (26.0-36.0)
[2018-05-11 18:34] LABS: Calcium 10.2 mg/dL (8.6-10.3); Potassium 3.7 mEq/L (3.5-5.1)
[2018-05-11 18:35] LABS: Troponin I 0.03 ng/mL (< 0.04)
[2018-05-11] MEDS ORDERED: 0.9 % Sodium Chloride 1,000 ML IVC ONE (18:40)
--- NOTE | 2018-05-11 19:09 | Emergency Department Note ---
Disposition Clinical Impression: Atypical chest pain, NAVIN (acute kidney injury) Disposition: Admitted As Inpatient Condition: Fair Forms: ED Satisfaction Letter Time of Disposition: 19:41 General Adult HPI - General Chief complaint: ED Chest Pain Stated complaint: cp Time Seen by Provider: 05/11/18 17:34 Source: patient Mode of arrival: EMS Limitations: no limitations - History of Present Illness Pain Scale: 10 - Related Data Home Medications Medication Instructions Recorded Confirmed Armodafinil 250 mg PO DAILY 09/23/17 10/31/17 Brexpiprazole [Rexulti] 3 mg PO DAILY 09/23/17 10/31/17 Fenofibrate Nanocrystallized 160 mg PO DAILY 09/23/17 10/31/17 [Triglide] Ondansetron ODT [Zofran ODT] 4 mg PO Q8H PRN 09/23/17 10/31/17 Pantoprazole Sodium 40 mg PO DAILY 09/23/17 10/31/17 Pravastatin Sodium [Pravachol] 80 mg PO HS 09/23/17 10/31/17 Ranitidine HCl [Acid Cloth Sponger] 150 mg PO BID 09/23/17 10/31/17 Valsartan/Hydrochlorothiazide 1 tab PO DAILY 09/23/17 10/31/17 [Diovan Hct 160-12.5 mg Tab] Vortioxetine Hydrobromide 20 mg PO DAILY 09/23/17 10/31/17 [Trintellix] lamoTRIgine [Lamotrigine] 200 mg PO DAILY 09/23/17 10/31/17 Loratadine [Allergy Relief] 10 mg PO DAILY 10/31/17 10/31/17 Zolpidem Tartrate [Ambien Cr] 6.25 mg PO QPM PRN 10/31/17 10/31/17 Previous Rx's Medication Instructions Recorded Aspirin 81 mg PO DAILY #30 tab.chew 09/24/17 Ticagrelor [Brilinta] 90 mg PO BID #60 tablet 11/01/17 Allergies Allergy/AdvReac Type Severity Reaction Status Date / Time Sulfa (Sulfonamide AdvReac Hives Verified 09/23/17 11:56 Antibiotics) Constitutional: Denies: fever, chills Eyes: Denies: eye pain, vision change Cardiovascular: Reports: chest pain. Denies: dyspnea on exertion Respiratory: Denies: cough, dyspnea Gastrointestinal: Reports: abdominal pain, nausea. Denies: vomiting, diarrhea, constipation Genitourinary: Denies: urgency, dysuria Musculoskeletal: Denies: back pain Integumentary: Denies: rash Neurological: Denies: headache Past Medical History - Past Medical History Medical history: Reports: GERD, hypertension Surgical history: Reports: tonsilectomy Psychiatric history: Reports: anxiety, bipolar, depression - Social History Smoking Status: Light tobacco smoker Smokeless Tobacco Status: No Alcohol use: Reports: none, occasionally Drug use: Reports: none Physical Exam - General Limitations: no limitations General appearance: alert Course Vital Signs Temperature 101.0 F H 05/11/18 17:48 Pulse Rate 109 05/11/18 17:48 Respiratory Rate 19 05/11/18 17:48 Blood Pressure 128/76 05/11/18 17:48 O2 Sat by Pulse Oximetry 99 05/11/18 17:48 Temperature 101.0 F H 05/11/18 17:48 Pulse Rate 109 05/11/18 17:48 Respiratory Rate 19 05/11/18 17:48 Blood Pressure 128/76 05/11/18 17:48 O2 Sat by Pulse Oximetry 98 05/11/18 17:50 Oxygen Delivery Oxygen Delivery Room Air Medical Decision Making - Lab Data Result diagrams: 05/11/18 18:00 05/11/18 18:00 Lab Results 05/11/18 05/11/18 05/11/18 Range/Units 18:00 18:00 18:00 WBC 10.1 (4.3-11.1) K/mcL RBC 4.99 (4.19-5.50) M/mcL Hgb 14.9 (12.9-16.9) g/dL Hct 44.8 (37.5-50.1) % MCV 89.8 (83.0-100.0) fL MCH 29.9 (28.0-33.3) pg MCHC 33.3 (31.6-35.5) g/dL RDW 12.4 (11.5-14.5) % Plt Count 368 (140-400) K/mcL MPV 9.4 (9.4-12.4) fL Immature Gran % 0.7 (0-4) % Seg Neutrophils % 74.4 % Lymphocytes % 12.2 % Monocytes % 12.0 % Eosinophils % 0.4 % Basophils % 0.3 % Neutrophils # 7.5 (1.6-8.9) K/mcL Lymphocytes # 1.2 (0.6-4.6) K/mcL Monocytes # 1.2 (0.0-1.3) K/mcL Eosinophils # 0.0 (0.0-0.6) K/mcL Basophils # 0.0 (0.0-0.2) K/mcL PT 12.1 (9.4-12.1) Seconds INR 1.1 APTT 35.2 (26.0-36.0) Seconds Heparin Anti-Xa, Unfract (0.30-0.70) IU/mL Sodium (136-145) mEq/L Potassium (3.5-5.1) mEq/L Chloride (98-107) mEq/L Carbon Dioxide (23-29) mEq/L BUN (6-20) mg/dL Creatinine (0.70-1.30) mg/dL Est GFR ( Amer) (> 60) Est GFR (Non-Af Amer) (> 60) BUN/Creatinine Ratio (6-26) Glucose (70-105) mg/dL Calculated Osmolality (280-300) Calcium (8.6-10.3) mg/dL Troponin I (< 0.04) ng/mL B-Natriuretic Peptide 9 (Less than 100) pg/mL 05/11/18 05/11/18 Range/Units 18:00 18:02 WBC (4.3-11.1) K/mcL RBC (4.19-5.50) M/mcL Hgb (12.9-16.9) g/dL Hct (37.5-50.1) % MCV (83.0-100.0) fL MCH (28.0-33.3) pg MCHC (31.6-35.5) g/dL RDW (11.5-14.5) % Plt Count (140-400) K/mcL MPV (9.4-12.4) fL Immature Gran % (0-4) % Seg Neutrophils % % Lymphocytes % % Monocytes % % Eosinophils % % Basophils % % Neutrophils # (1.6-8.9) K/mcL Lymphocytes # (0.6-4.6) K/mcL Monocytes # (0.0-1.3) K/mcL Eosinophils # (0.0-0.6) K/mcL Basophils # (0.0-0.2) K/mcL PT (9.4-12.1) Seconds INR APTT (26.0-36.0) Seconds Heparin Anti-Xa, Unfract 0.00 L (0.30-0.70) IU/mL Sodium 139 (136-145) mEq/L Potassium 3.7 (3.5-5.1) mEq/L Chloride 103 (98-107) mEq/L Carbon Dioxide 22 L (23-29) mEq/L BUN 17 (6-20) mg/dL Creatinine 2.34 H (0.70-1.30) mg/dL Est GFR ( Amer) 35 L (> 60) Est GFR (Non-Af Amer) 29 L (> 60) BUN/Creatinine Ratio 7 (6-26) Glucose 101 (70-105) mg/dL Calculated Osmolality 290 (280-300) Calcium 10.2 (8.6-10.3) mg/dL Troponin I 0.03 (< 0.04) ng/mL B-Natriuretic Peptide (Less than 100) pg/mL Attestation Statement - Attestation Attestation: I, Dipesh Nuñez DO, examined this patient [id number] and my medical decision-making was reviewed with Dr. Mary Reza, Resident Physician. I agree with the documented findings, disposition and treatment plan as described except to the extent set forth below. Please see my progress notes for details. 57-year-old male presents emergency room for evaluation of chest pain. Patient's symptoms started acutely just prior to arrival. Patient was out walking around his job site and acutely felt diaphoretic and had pain in his chest wall. Patient similar symptoms in December of last year that ended up requiring catheterization and stent placement. Patient denies any falls trauma or injury. He has been taking his home medications as prescribed. Denies any recent fevers or chills. He has had a productive cough for the last 3-4 days. Denies any nausea vomiting or diarrhea. No headache or vision change at this time. Patient is otherwise alert and oriented. On presentation here the patient's vital signs are stable. He does have a fever up to 101. Head is atraumatic. Oropharynx is patent. Trachea is midline. No stridor no trismus. Lungs are clear. Heart is regular. Abdomen is soft. Patient is describing similar symptoms when he had angina in the past that required stenting. Immediate EKG as well as cardiac evaluation has been started. EKG CBC chemistry troponin chest x-ray and BNP will be collected and ordered here in the emergency department. Symptomatically controlled to be established with nitroglycerin and aspirin. Patient is otherwise resting comfortably. Disposition will most likely be admission secondary to this. The history and evaluation. See detailed documentation the physical exam, medical intervention, medical decision-making and disposition in the resident physician's note. No critical care pad the patient's treatment course at this time. 1900 Patient has negative troponin. Chest pain resolved after morphine. He had persistent pain after the nitroglycerin. Patient did have a temperature was provided with Tylenol. Blood cultures were ordered. Otherwise his labs are completely unremarkable. Heparin drip was ordered at this time secondary to the concerning history and medical presentation. Patient will be discussed with the hospitals for admission. No other acute issues noted during this treatment course. Patient has what appears to be angina at this time with concern for acute coronary syndrome. 1934 Patient was discussed with the hospitalist Dr. Coppola. No other recommendations or concerns are noted. Patient is otherwise clinically stable. Admission process will be completed for acute coronary syndrome evaluation. Medical intervention has been provided with morphine and heparin drip. Patient does have a fever but unknown source to infection at this time. No antibiotic regimen will be started. Patient is otherwise stable.
[2018-05-11] MEDS: Heparin 25,000 UNIT/500 ML D5W 25,000 UNIT/500 ML BAG IVC SCH (19:43)
[2018-05-11] MEDS ORDERED: (Armodafinil [Armodafinil] 250 MG) PO PRN (21:15)
[2018-05-11] MEDS ORDERED: GI Cocktail 40 ML EACH PO ONE (21:15)
[2018-05-11] MEDS ORDERED: *HR* Morphine 2 MG/ML SYRINGE IVP PRN (21:17)
[2018-05-11] MEDS ORDERED: *HR* Promethazine 25 MG/ML VIAL IVP PRN (21:19)
[2018-05-11] MEDS ORDERED: Naloxone 0.4 MG/ML INJ IVP PRN (21:21)
[2018-05-11] MEDS ORDERED: *HR* HYDROcodone/Acet 5/325 mg TABLET PO PRN (21:21)
[2018-05-11] MEDS ORDERED: Acetaminophen 325 MG TABLET PO PRN (21:21)
[2018-05-11] MEDS ORDERED: Nitroglycerin 0.4 MG TAB.SUBL SL PRN (21:26)
--- NOTE | 2018-05-12 00:57 | Internal Med History&Physical ---
Date of Encounter: 05/11/18 Time of Encounter: 20:00 Internal Medicine - H&P: HPI Chief complaint: CP Admitted From: Emergency Dept Plans for Post Hospital Care: Home History of present illness: Mr. Telles is a 57 year old male w/PMH of HTN, GERD, anxiety, and bipolar depression presents from the ED with chief complaint of chest pain that began this afternoon at 15:00 while patient was at work. Patient reports he was lifting and pushing boxes. Patient reports he has had chest pain previously and alleviating factor has been rest. Alleviating factor today 3 doses of nitroglycerin. Associated symptoms: Diaphoresis, shortness of breath, nausea, headache. Patient reports pain as centralized pressure in chest without radiation. Reports symptoms same as when he had his heart catheterization in December with stent placement 1. Patient reports history of GERD. Patient reports not feeling well for the past 4 days with flulike symptoms but denies fevers, chills, headache, changes in vision, unusual bleeding, abdominal pain, diarrhea, constipation, cough, chest congestion, dizziness, lightheadedness, numbness, tingling, pre-syncope, or syncope. Past Med Surg Social Fam HX - Past Medical History Source: patient, old records reviewed Medical history: GERD, hypertension Additional medical history: sleep apnea, chronic nausea Psychiatric history: anxiety, bipolar, depression - Past Surgical History Surgical History: tonsilectomy Additional surgical history: Sinus surgery - Social History Smoking Status: Light tobacco smoker Packs per day: Pipe 3-4x Week Smokeless Tobacco Status: No Alcohol use: none, occasionally Drug use: none Occupational status: employed Current living situation: Home Activity Level: Independent ambulation Recent Out of Country Travel Within the Last 8 Weeks: No Exposure or Possible Exposure to Illness During Travel: No - Family History Mother Race: Living Status: Still Living Hx Family Cancer: Yes (Breast Cancer) Hx Family Endocrine Disorder: Yes (DM) Maternal Grandmother Race: Living Status: Hx Family Cancer: Yes Father Race: Living Status: Still Living Hx Family Medical Disorders: No Sister Race: Living Status: Still Living Hx Family Medical Disorders: No Internal Medicine - H&P: Meds Armodafinil 250 mg PO DAILY PRN 09/23/17 [History] Brexpiprazole [Rexulti] 3 mg PO DAILY 09/23/17 [History] Fenofibrate Nanocrystallized [Triglide] 160 mg PO DAILY 09/23/17 [History] Ondansetron ODT [Zofran ODT] 8 mg PO QAM 09/23/17 [History] Pantoprazole Sodium 40 mg PO DAILY 09/23/17 [History] Pravastatin Sodium [Pravachol] 80 mg PO HS 09/23/17 [History] Ranitidine HCl [Acid Supercharge Repair Supervisor] 150 mg PO BID 09/23/17 [History] Valsartan/Hydrochlorothiazide [Diovan Hct 160-12.5 mg Tab] 1 tab PO DAILY 09/23/17 [History] Vortioxetine Hydrobromide [Trintellix] 20 mg PO DAILY 09/23/17 [History] lamoTRIgine [Lamotrigine] 200 mg PO DAILY 09/23/17 [History] Aspirin 81 mg PO DAILY #30 tab.chew 09/24/17 [Rx] Loratadine [Allergy Relief] 10 mg PO DAILY 10/31/17 [History] Zolpidem Tartrate [Ambien Cr] 6.25 mg PO HS PRN 10/31/17 [History] Ticagrelor [Brilinta] 90 mg PO BID #60 tablet 11/01/17 [Rx] Allergy/AdvReac Type Severity Reaction Status Date / Time Sulfa (Sulfonamide AdvReac Hives Verified 09/23/17 11:56 Antibiotics) All Systems PM: A 10-system review of systems was performed and is negative for pertinent findings except as documented above in the HPI. - Constitutional Constitutional: no chills, no fever(s), no night sweats - EENT Eyes: no change in vision, no discharge, no pain, no photophobia Ears: no ear discharge, no ear pain, no tinnitus Nose, mouth and throat: no dysphagia, no nasal discharge, no neck pain, no sore throat - Breasts Breasts: as per HPI - Cardiovascular Cardiovascular ROS IM: as per HPI, chest pain, diaphoresis, dyspnea, dyspnea on exertion, no lightheadedness, no palpitations, no syncope - Respiratory Respiratory: as per HPI, dyspnea, dyspnea on exertion, no cough, no wheezing, no excessive phlegm production - Gastrointestinal Gastrointestinal: as per HPI, nausea, no abdominal pain, no diarrhea, no hematemesis, no hematochezia, no melena, no vomiting - Genitourinary Genitourinary ROS male: as per HPI - Musculoskeletal Musculoskeletal ROS IM: no numbness, no tingling - Integumentary Integumentary IM: no rash, no unusual bruising - Neurological Neurological ROS: no confusion, no convulsions, no focal weakness, no numbness, no tingling, no tremor(s) - Psychiatric Psychiatric: as per HPI, anxiety, depression - Endocrine Endocrine IM: as per HPI - Hematologic/Lymphatic Hematologic/Lymphatic: no easy bruising - Allergic/Immunologic Allergic/Immunologic: as per HPI - Constitutional Vitals: Temp Pulse Resp BP Pulse Ox 98.9 F 90 20 117/69 97 05/11/18 21:39 05/11/18 23:12 05/11/18 23:12 05/11/18 23:12 05/11/18 23:12 General appearance: Present: A&O X 3, pleasant, no acute distress, obese, answers questions appropriately Exam: Patient examined at bedside in ED. Patient resting comfortably and reporting no chest pain on exam. Patient reported previous diaphoresis, shortness of breath, nausea, and headache associated with chest pain symptoms at work which have all subsided. States symptoms are similar to December symptoms when he had heart catheterization with one stent placement. Patient denies any other symptoms or complaints at this time. VS: 98.9F temp, HR 85, RR 16, BP 127/82, SPO2 95% on room air. - Head Head exam: Present: atraumatic, normocephalic - Eye Eye exam: Present: PERRL, conjuntiva pink, sclera anicteric Pupils: Present: PERRL - ENT ENT exam: Present: normal exam - Neck Neck exam general surgery: Present: normal inspection, supple, trachea midline. Absent: lymphadenopathy - Respiratory Respiratory exam: Present: CTAB. Absent: accessory muscle use, rales, rhonchi, wheezes - Cardiovascular Cardiovascular exam: Present: RRR, +S1, +S2. Absent: diastolic murmur, gallop, rubs, systolic murmur - GI/Abdominal GI/Abdominal exam: Present: normal bowel sounds, soft, no peritoneal signs. Absent: distended, tenderness - Rectal Rectal exam: Present: deferred - Additional comments: exam deferred. - Extremities Exam Extremities exam: Present: normal inspection, warm, radial pulses palpable and symmetrical. Absent: calf tenderness, cyanotic, pedal edema - Back Exam Back exam: Present: normal inspection - Neurological Exam Neurological exam: Present: alert, CN II-XII intact, oriented X3, no focal deficits. Absent: pronater drift, facial droop, speech deficit - Psychiatric Psychiatric exam: Present: normal affect, normal mood - Skin Skin exam: Present: dry, intact Internal Med - H&P Results - Labs CBC & Chem 7: 05/11/18 18:00 05/11/18 18:00 Labs: Short CBC 05/11/18 Range/Units 18:00 WBC 10.1 (4.3-11.1) K/mcL Hgb 14.9 (12.9-16.9) g/dL Hct 44.8 (37.5-50.1) % Plt Count 368 (140-400) K/mcL Neutrophils # 7.5 (1.6-8.9) K/mcL BMP 05/11/18 18:00 Sodium 139 Potassium 3.7 Chloride 103 Carbon Dioxide 22 L BUN 17 Creatinine 2.34 H Glucose 101 Calcium 10.2 Cardiac Enzymes 05/11/18 Range/Units 18:00 Troponin I 0.03 (< 0.04) ng/mL - EKG Data EKG shows normal: sinus rhythm Rate: tachycardia - EKG Data Prior EKG available for review: yes EKG comments: 05/12/18 01:22 EKG dated 10/31/17 shows sinus rhythm with borderline left axis deviation and moderate voltage criteria for LVH. Consider normal variant. Nonspecific T-wave abnormality. EKG dated 05/11/18 17:51 shows sinus tachycardia with borderline left axis deviation and abnormal R-wave progression, late transition. EKG dated 05/11/18 18:15 shows sinus tachycardia with borderline left axis deviation and abnormal R-wave progression, late transition. - Impressions ITS Impressions Chest X-Ray 05/11/18 17:35 IMPRESSION: No acute process. D/ / Melquiades Davila MD / Melquiades Davila MD Interpreting Provider: Melquiades Davila MD - Diagnostic Studies Chest x-ray Additional comments: Impressions Chest X-Ray 05/11/18 17:35 IMPRESSION: No acute process. D/ / Melquiades Davila MD / Melquiades Davila MD Interpreting Provider: Melquiades Davila MD - Assessment and plan (1) Atypical chest pain Current Visit: Yes Status: Acute Assessment and plan: Acute atypical CP that began this afternoon at 15:00 while patient was at work. Patient reports he was lifting and pushing boxes. Patient reports he has had chest pain previously and alleviating factor has been rest. Alleviating factor today 3 doses of nitroglycerin. Associated symptoms: Diaphoresis, shortness of breath, nausea, headache. Patient reports pain as centralized pressure in chest without radiation. Reports symptoms same as when he had his heart c atheterization in December with stent placement 1. Initial troponin <0.03. Second 0.08. Heparin gtt ordered. ASA. 80 mg Lipitor once. Last Echocardiogram on 09/23/17 showed LVEF of 60%, normal LV chamber size and wall thickness and function, mild left ventricular diastolic dysfunction, normal right ventricular structure and function, no evidence of pulmonary hypertension, and no significant valvular dysfunction. Last C on 10/31/17 w/stent placement x1. Limited Echocardiogram ordered. Continuous cardiac telemetry. Cardiology consult ordered but not confirmed d/t time of placement. A.M. team to f/u and confirm consult d/t pts. hx. Pt. is high risk for cardiac event and further morbidity d/t current atypical CP exacerbated by exertion, hx of previous sx and stent placement x1, elevated troponin requiring heparin gtt and close monitoring; and risk factors of hypertension, HLD, obesity, and current tobacco use. Observation. (2) NAVIN (acute kidney injury) Current Visit: Yes Status: Acute Assessment and plan: Acute kidney injury. Creatinine 2.34 and GFR 29 on admission. Hx of CKD, but current renal dysfunction is worse. Pt. received 1.5 L boluses in ED. We will monitor patient's follow-up labs in a.m. for improvement in renal function. Avoid nephrotoxins. (3) HTN (hypertension) Current Visit: Yes Status: Chronic Assessment and plan: Hx of chronic HTN. Monitor pt. and VS. Continue pts. Valsartan. Qualifiers: Hypertension type: essential hypertension Qualified Code(s): I10 - Essential (primary) hypertension (4) HLD (hyperlipidemia) Current Visit: Yes Status: Chronic Assessment and plan: Hx of chronic HLD. Lipid panel in a.m. labs. Continue patient's pravastatin and fenofibrate. Qualifiers: Hyperlipidemia type: pure hypercholesterolemia Qualified Code(s): E78.00 - Pure hypercholesterolemia, unspecified; E78.0 - Pure hypercholesterolemia (5) GERD (gastroesophageal reflux disease) Current Visit: Yes Status: Chronic Assessment and plan: Hx of chronic GERD. GI cocktail ordered. Continue patient's ranitidine and pantoprazole. Phenergan 12.5 mg IVP every 6 hours when necessary for nausea and vomiting. Qualifiers: Esophagitis presence: esophagitis presence not specified Qualified Code(s): K21.9 - Gastro-esophageal reflux disease without esophagitis (6) Tobacco abuse Current Visit: Yes Status: Chronic Assessment and plan: Hx of chronic tobacco use. Pt. reports smoking a pipe 3-4x weekly. Patient educated on cessation and risks of tobacco use regarding cardiac hx and current sx. (7) Anxiety and depression Current Visit: Yes Status: Chronic Assessment and plan: Hx of chronic anxiety and depression. Continue pts. Lamotrigine, Rexulti, and Trintellix. (8) DVT prophylaxis Current Visit: Yes Status: Acute Assessment and plan: Pt. on heparin gtt for CP. Monitor pt. for signs of bleeding. - Time Spent With Patient Total time spent is greater than 50% in coordination of care (as documented) at patient's floor/unit and/or counseling patient: Greater than 35 minutes
[2018-05-12 03:23] LABS: Basophils % 0.3 %; Eosinophils # 0.1 K/mcL (0.0-0.6); Eosinophils % 1.9 %; Hematocrit 38.9 % (37.5-50.1); Immature Granulocytes % 0.4 % (0-4); Lymphocytes # 2.2 K/mcL (0.6-4.6); Lymphocytes % 31.2 %; Mean Corpuscular HGB Conc 33.7 g/dL (31.6-35.5); Mean Corpuscular Hemoglobin 30.3 pg (28.0-33.3); Mean Corpuscular Volume 89.8 fL (83.0-100.0); Mean Platelet Volume 9.2 fL (9.4-12.4); Monocytes # 0.9 K/mcL (0.0-1.3); Monocytes % 13.2 %; Neutrophils # 3.7 K/mcL (1.6-8.9); Platelet Count 296 K/mcL (140-400); Red Blood Count 4.33 M/mcL (4.19-5.50); Red Cell Distribution Width 12.4 % (11.5-14.5)
[2018-05-12 03:24] LABS: Hemoglobin 13.1 g/dL (12.9-16.9)
[2018-05-12 03:44] LABS: Albumin 4.3 g/dL (3.5-5.7); Albumin/Globulin Ratio 1.7 (1.1-2.2); Bilirubin,Total 0.6 mg/dL (0.3-1.0); Calcium 8.7 mg/dL (8.6-10.3); Chol/HDL Ratio 6.6 (0-4.9); Globulin 2.6 g/dL (2.4-3.5); Magnesium 2.1 mg/dL (1.6-2.6); Potassium 3.3 mEq/L (3.5-5.1); Total Protein 6.9 g/dL (6.4-8.9)
[2018-05-12] MEDS: *HR* Heparin 5,000 UNIT/ML VIAL IVP PRN (05:30)
[2018-05-12] MEDS ORDERED: Valsartan 160 MG TABLET PO SCH (09:00)
[2018-05-12] MEDS ORDERED: hydroCHLOROthiazide 25 MG TABLET PO SCH (09:00)
[2018-05-12] MEDS ORDERED: Ondansetron 4 MG/2 ML VIAL IVP ONE (10:03)
[2018-05-12] MEDS: Aspirin Enteric Coated 81 MG Tablet PO SCH (10:33)
[2018-05-12] MEDS: Famotidine 20 MG TABLET PO SCH ×2 (10:33→20:19)
[2018-05-12] MEDS: Loratadine 10 MG TABLET PO SCH (10:33)
[2018-05-12] MEDS: (Brexpiprazole [Rexulti] 3 MG) PO SCH (10:34)
[2018-05-12] MEDS: TRINTELLIX PO SCH (10:34)
[2018-05-12] MEDS: Fenofibrate 54 MG TABLET PO SCH (11:15)
[2018-05-12] MEDS: lamoTRIgine 100 MG TABLET PO SCH (11:16)
--- NOTE | 2018-05-12 11:20 | Cardiology Consult Note ---
<Selena Saez - Last Filed: 05/12/18 15:17> Date of Encounter: 05/12/18 Time of Encounter: 09:00 Assessment and Plan (1) Atypical chest pain Current Visit: Yes Status: Acute Acute atypical chest pain onset when moving objects associated with diaphoresis but resolved 1 hour after resting. In the ED he was noted to have troponin of 0.03, 0.08 and 0.05. His EKG showed normal sinus rhythm with tachycardia. He is complaint with his home medications. Noted to have elevated lipids even on home prevastatin. He had a left heart catherization on 12/23 and had one stent placed. His last echo was on 09/22 which showed EF of 60% with mild left ventricular diastolic dysfunction. He was afebrile and was noted to have NAVIN, troponin elevation cannot be fully attributed to cardiac cause. -Pending limited TTE -Continue heparin for 48 hours -Continue ASA and Brillinta -Added Imdur, continue -Stopped Valsartan (2) NAVIN (acute kidney injury) Current Visit: Yes Status: Acute Creatinine at admission noted to be 2.34 and today is 1.65. His GFR was also noted to be low at 29 upon admission and 44 today. He was also febrile at presentation. Given his renal status, mild troponin elevation cannot be fully contributed to cardiac cause. Discussion w patient/family: The assessment and plan as outlined above was discussed with the patient and/or family members who expressed understanding and agreement. All questions were answered. Thank you for involving us in the care of your patient. Please call with any questions. History of Present Illness Consult date: 05/12/18 Requesting physician: Scot Gilbert Consult reason: atypical chest pain Chief complaint: chest pain History of present illness: Mr. Telles is a 57 year old male with past medical history of hypertension, GERD, CAD who presented to the ED complaining of chest pain that began on 05/11 at 1500 when he was lifting and moving objects. There was no radiation of pain to the arms, neck or back. He noted the pain resolved after he rested for one hour. He also had diaphoresis at the onset of pain. He denied nausea or emesis. He had a left heart catherization in December with one stent placement in the circumflex. He has noted flulike symptoms for the past two days. In the ED his troponin was noted to be 0.03, 0.08 and 0.05. He also received nitroglycerin His EKG showed sinus tachycardia. He was febrile, 101.0. He also had an NAVIN with decrease in his GFR. He denies fever, chills, nausea or emesis. Past Med Surg Social Fam HX - Past Medical History Medical history: GERD, hypertension Additional medical history: sleep apnea, chronic nausea Psychiatric history: anxiety, bipolar, depression - Past Surgical History Surgical History: tonsilectomy Additional surgical history: Sinus surgery - Social History Smoking Status: Light tobacco smoker Packs per day: Pipe 3-4x Week Smokeless Tobacco Status: No Alcohol use: none, occasionally Drug use: none - Family History Mother Race: Living Status: Still Living Hx Family Cancer: Yes (Breast Cancer) Hx Family Endocrine Disorder: Yes (DM) Maternal Grandmother Race: Living Status: Hx Family Cancer: Yes Father Race: Living Status: Still Living Hx Family Medical Disorders: No Sister Race: Living Status: Still Living Hx Family Medical Disorders: No Medications and Allergies Armodafinil 250 mg PO DAILY PRN 09/23/17 [History] Brexpiprazole [Rexulti] 3 mg PO DAILY 09/23/17 [History] Fenofibrate Nanocrystallized [Triglide] 160 mg PO DAILY 09/23/17 [History] Ondansetron ODT [Zofran ODT] 8 mg PO QAM 09/23/17 [History] Pantoprazole Sodium 40 mg PO DAILY 09/23/17 [History] Pravastatin Sodium [Pravachol] 80 mg PO HS 09/23/17 [History] Ranitidine HCl [Acid Film Flat Inspector] 150 mg PO BID 09/23/17 [History] Valsartan/Hydrochlorothiazide [Diovan Hct 160-12.5 mg Tab] 1 tab PO DAILY 09/23/17 [History] Vortioxetine Hydrobromide [Trintellix] 20 mg PO DAILY 09/23/17 [History] lamoTRIgine [Lamotrigine] 200 mg PO DAILY 09/23/17 [History] Aspirin 81 mg PO DAILY #30 tab.chew 09/24/17 [Rx] Loratadine [Allergy Relief] 10 mg PO DAILY 10/31/17 [History] Zolpidem Tartrate [Ambien Cr] 6.25 mg PO HS PRN 10/31/17 [History] Ticagrelor [Brilinta] 90 mg PO BID #60 tablet 11/01/17 [Rx] Allergy/AdvReac Type Severity Reaction Status Date / Time Sulfa (Sulfonamide AdvReac Hives Verified 09/23/17 11:56 Antibiotics) All Systems Review: The remainder of the systems were reviewed and are negative - Constitutional Constitutional: no chills, no fever(s), no weakness - Cardiovascular Cardiovascular: chest pain with exertion, no chest pain at rest, no dyspnea at rest, no dyspnea on exertion, no orthopnea, no palpitations, no paroxysmal nocturnal dyspnea - Respiratory Respiratory: no dyspnea - Gastrointestinal Gastrointestinal: no hematemesis, no hematochezia, no melena - Musculoskeletal Musculoskeletal: no muscle cramps, no muscle weakness - Integumentary Integumentary: no erythema, no rash - Neurological Neurological: no focal weakness, no numbness, no syncope Physical Examination Vital Signs, Last 4 Hours Temp Pulse Resp BP Pulse Ox 05/12/18 07:19 98.7 F 90 18 119/74 95 General: Conversant, No Apparent Distress HEENT: Atraumatic, Normocephaly, Mucus Membranes Moist Neck: No JVD, Normal carotid pulses Cardiac: Reg Rate and Rhythm, Normal S1 and S2, No Murmur Lungs: Normal Breath Sounds, No Wheeze, Rales, Rhonchi Neuro: Alert and responsive, No focal deficits noted Abdomen: Soft, Non-Tender Skin: No rashes noted on visualized skin Musculoskeletal: No Chest Wall Tenderness Extremities: No Edema, Normal Pulses Results 05/12/18 03:14 05/12/18 03:14 Lab Results 05/11/18 05/11/18 05/11/18 18:00 18:00 18:00 WBC 10.1 Hgb 14.9 Hct 44.8 Plt Count 368 INR 1.1 APTT 35.2 Sodium Potassium Chloride Carbon Dioxide BUN Creatinine Glucose Calcium Magnesium Total Bilirubin AST ALT Alkaline Phosphatase Troponin I B-Natriuretic Peptide 9 05/11/18 05/12/18 05/12/18 18:00 00:17 03:14 WBC 6.9 Hgb 13.1 D Hct 38.9 Plt Count 296 INR APTT Sodium 139 Potassium 3.7 Chloride 103 Carbon Dioxide 22 L BUN 17 Creatinine 2.34 H Glucose 101 Calcium 10.2 Magnesium Total Bilirubin AST ALT Alkaline Phosphatase Troponin I 0.03 0.08 H* B-Natriuretic Peptide 05/12/18 05/12/18 03:14 09:59 WBC Hgb Hct Plt Count INR APTT Sodium 139 Potassium 3.3 L Chloride 106 Carbon Dioxide 20 L BUN 19 Creatinine 1.65 H Glucose 98 Calcium 8.7 Magnesium 2.1 Total Bilirubin 0.6 AST 27 ALT 32 Alkaline Phosphatase 51 Troponin I 0.05 H* B-Natriuretic Peptide Consult Discharge Plan - Plan Referrals: Hiren Vazquez MD [Primary Care Provider] - <Anusha Zuñiga - Last Filed: 05/12/18 19:49> Date of Encounter: 05/12/18 - Attending Attestation I examined this patient and my medical decision-making was reviewed with the Resident Physician. I agree with the documented findings, disposition and treatment plan. Atypical symptoms in setting of ARF and fever. Troponins flat and adynamic. No acute ECG changes. Recommend echo for re-evaluation of LV function. Heparin for 48hrs, asa and brilinta. Imdur added. Assessment and Plan Discussion w patient/family: The assessment and plan as outlined above was discussed with the patient and/or family members who expressed understanding and agreement. All questions were answered. Thank you for involving us in the care of your patient. Please call with any questions. History of Present Illness History of present illness: Mr. Telles is a 57 year old male All Systems Review: The remainder of the systems were reviewed and are negative Physical Examination Vital Signs, Last 4 Hours Temp Pulse Resp BP Pulse Ox 05/12/18 19:28 98.3 F 83 16 114/74 93 05/12/18 16:00 98.1 F 92 16 138/81 100 Results 05/12/18 03:14 05/12/18 03:14 Lab Results 05/12/18 05/12/18 05/12/18 00:17 03:14 03:14 WBC 6.9 Hgb 13.1 D Hct 38.9 Plt Count 296 Sodium 139 Potassium 3.3 L Chloride 106 Carbon Dioxide 20 L BUN 19 Creatinine 1.65 H Glucose 98 Calcium 8.7 Magnesium 2.1 Total Bilirubin 0.6 AST 27 ALT 32 Alkaline Phosphatase 51 Troponin I 0.08 H* 05/12/18 09:59 WBC Hgb Hct Plt Count Sodium Potassium Chloride Carbon Dioxide BUN Creatinine Glucose Calcium Magnesium Total Bilirubin AST ALT Alkaline Phosphatase Troponin I 0.05 H*
--- NOTE | 2018-05-12 18:44 | Internal Med Progress Note ---
Hospitalist Progress Note - Encounter Date of Encounter: 05/12/18 Time of Encounter: 09:00 - Subjective Interval History: Patient is laying on bed comfortably. No further chest pain. Denies nausea, fever. Vitals are stable. - Exam Vitals: Temp Pulse Resp BP Pulse Ox 98.1 F 92 16 138/81 100 05/12/18 16:00 05/12/18 16:00 05/12/18 16:00 05/12/18 16:00 05/12/18 16:00 Exam: Pt is AAO x 3, in NAD HEENT: NC/AT, PERRL Neck: Supple, no JVD, no LAD Lungs: CTA b/l Heart: S1S2, RRR Abd: Soft, nontender, BS present Ext: ROM wnl, no pedal edema Neuro: No focal deficit - Assessment and Plan (1) DVT prophylaxis Current Visit: Yes Status: Acute Assessment and Plan: Pt is on heparin drip (2) Atypical chest pain Current Visit: Yes Status: Acute Assessment and Plan: Patient is pain-free at this point. History of CAD S/P stent recently. Cardiology consult saw patient, recommendation appreciated. - Will continue heparin drip for 48 hours. - Troponin 0.03-0.08-0.05 - Continue cardiac monitoring - Continue aspirin and brilinta - Echo is pending. - Add imdur, NTG prn (3) NAVIN (acute kidney injury) Current Visit: Yes Status: Acute Assessment and Plan: Cr improved from 2.34 to 1.65 after hydration, will continue closely monitor renal function. Avoid nephrotoxic medications. Hold the valsartan at this point. (4) HTN (hypertension) Current Visit: Yes Status: Chronic Assessment and Plan: Hx of chronic HTN. Monitor pt. and VS. Hold Valsartan because of NAVIN, place patient on Imdur now. Hydralazine IV when necessary. (5) GERD (gastroesophageal reflux disease) Current Visit: Yes Status: Chronic Assessment and Plan: Hx of chronic GERD. GI cocktail ordered. Continue patient's ranitidine and pantoprazole. Phenergan 12.5 mg IVP every 6 hours when necessary for nausea and vomiting. (6) Anxiety and depression Current Visit: Yes Status: Chronic Assessment and Plan: Hx of chronic anxiety and depression. Continue pts. Lamotrigine, Rexulti, and Trintellix. (7) HLD (hyperlipidemia) Current Visit: Yes Status: Chronic Assessment and Plan: Hx of chronic HLD. Lipid panel in a.m. labs. Continue patient's pravastatin and fenofibrate. (8) Tobacco abuse Current Visit: Yes Status: Chronic Assessment and Plan: Hx of chronic tobacco use. Pt. reports smoking a pipe 3-4x weekly. Patient educated on cessation and risks of tobacco use regarding cardiac hx and current sx. - Time Spent with Patient Total time spent is greater than 50% in coordination of care (as documented) at patient's floor/unit and/or counseling patient: 40 minutes Greater than 35 minutes Plan of Care Discussed with: patient Internal Medicine: Result - Labs CBC & Chem 7: 05/12/18 03:14 05/12/18 03:14 Labs: Short CBC 05/12/18 Range/Units 03:14 WBC 6.9 (4.3-11.1) K/mcL Hgb 13.1 D (12.9-16.9) g/dL Hct 38.9 (37.5-50.1) % Plt Count 296 (140-400) K/mcL Neutrophils # 3.7 (1.6-8.9) K/mcL BMP 05/12/18 03:14 Sodium 139 Potassium 3.3 L Chloride 106 Carbon Dioxide 20 L BUN 19 Creatinine 1.65 H Glucose 98 Calcium 8.7 Cardiac Enzymes 05/12/18 05/12/18 Range/Units 00:17 09:59 Troponin I 0.08 H* 0.05 H* (< 0.04) ng/mL Liver Function 05/12/18 Range/Units 03:14 Total Bilirubin 0.6 (0.3-1.0) mg/dL AST 27 (13-39) Units/L ALT 32 (7-52) Units/L Alkaline Phosphatase 51 (34-104) Units/L Albumin 4.3 (3.5-5.7) g/dL - ABG Interpretation ABG results: PT/INR, D-dimer PT 12.1 Seconds (9.4-12.1) 05/11/18 18:00 Consult Discharge Plan - Plan Referrals: Hiren Vazquez MD [Primary Care Provider] - ___ (4) HTN (hypertension) Qualifiers: Hypertension type: essential hypertension Qualified Code(s): I10 - Essential (primary) hypertension (5) GERD (gastroesophageal reflux disease) Qualifiers: Esophagitis presence: esophagitis presence not specified Qualified Code(s): K21.9 - Gastro-esophageal reflux disease without esophagitis (7) HLD (hyperlipidemia) Qualifiers: Hyperlipidemia type: pure hypercholesterolemia Qualified Code(s): E78.00 - Pure hypercholesterolemia, unspecified; E78.0 - Pure hypercholesterolemia
[2018-05-12] MEDS: *HR* Ticagrelor 90 MG TABLET PO SCH (20:19)
[2018-05-12] MEDS: Heparin 25,000 UNIT/500 ML D5W 25,000 UNIT/500 ML BAG IVC SCH (22:41)
--- NOTE | 2018-05-12 23:58 | Electrocardiograph Report ---
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
[2018-05-13] MEDS: *HR* Heparin 5,000 UNIT/ML VIAL IVP PRN (04:47)
[2018-05-13 05:13] LABS: Basophils % 0.4 %; Eosinophils # 0.3 K/mcL (0.0-0.6); Eosinophils % 5.5 %; Hematocrit 38.5 % (37.5-50.1); Hemoglobin 12.9 g/dL (12.9-16.9); Immature Granulocytes % 0.4 % (0-4); Lymphocytes # 2.2 K/mcL (0.6-4.6); Lymphocytes % 39.7 %; Mean Corpuscular HGB Conc 33.5 g/dL (31.6-35.5); Mean Corpuscular Hemoglobin 30.5 pg (28.0-33.3); Mean Platelet Volume 9.4 fL (9.4-12.4); Monocytes # 0.6 K/mcL (0.0-1.3); Monocytes % 10.1 %; Neutrophils # 2.4 K/mcL (1.6-8.9); Platelet Count 286 K/mcL (140-400); Red Blood Count 4.23 M/mcL (4.19-5.50); Red Cell Distribution Width 12.3 % (11.5-14.5); Segmented Neutrophils % 43.9 %
[2018-05-13 05:32] LABS: Alanine Aminotransferase 29 Units/L (7-52); Albumin 4.1 g/dL (3.5-5.7); Albumin/Globulin Ratio 1.6 (1.1-2.2); Alkaline Phosphatase 56 Units/L (34-104); Aspartate Amino Transferase 24 Units/L (13-39); BUN/Creatinine Ratio 14 (6-26); Bilirubin,Total 0.3 mg/dL (0.3-1.0); Blood Urea Nitrogen 18 mg/dL (6-20); Calcium 9.4 mg/dL (8.6-10.3); Carbon Dioxide 21 mEq/L (23-29); Chloride 106 mEq/L (98-107); Globulin 2.5 g/dL (2.4-3.5); Glucose 117 mg/dL (70-105); Osmolality,Calculated 291 (280-300); Potassium 3.6 mEq/L (3.5-5.1); Sodium 139 mEq/L (136-145); Total Protein 6.6 g/dL (6.4-8.9); eGFR For Non-African Americans 57 (> 60)
[2018-05-13] MEDS: *HR* Ticagrelor 90 MG TABLET PO SCH (08:39)
[2018-05-13] MEDS: lamoTRIgine 100 MG TABLET PO SCH (08:39)
[2018-05-13] MEDS: Famotidine 20 MG TABLET PO SCH (08:39)
[2018-05-13] MEDS: Loratadine 10 MG TABLET PO SCH (08:39)
[2018-05-13] MEDS: Aspirin Enteric Coated 81 MG Tablet PO SCH (08:39)
[2018-05-13] MEDS: Fenofibrate 54 MG TABLET PO SCH (08:40)
[2018-05-13] MEDS: TRINTELLIX PO SCH (08:40)
[2018-05-13] MEDS: (Brexpiprazole [Rexulti] 3 MG) PO SCH (08:40)
[2018-05-13] MEDS ORDERED: Isosorbide MONOnitrate (24 HR) 30 MG TAB.ER.24H PO SCH (09:00)
--- NOTE | 2018-05-13 14:03 | Discharge Summary ---
- NOTES TO OUTPATIENT PROVIDER Notes to Outpatient Provider: Follow-up with cardiology within a week of hospital discharge. Orders not resulted at time of discharge: Pending orders 05/11/18 19:22 Culture,Blood [BC] Stat 05/14/18 04:00 Complete Blood Count [HEME] AM 0400 Comprehensive Metabolic Panel AM 0400 Date of Encounter: 05/13/18 Time of Encounter: 14:00 - Discharge Diagnosis (1) Atypical chest pain Priority: Primary Status: Resolved (2) NAVIN (acute kidney injury) Priority: Secondary Status: Resolved (3) HTN (hypertension) Priority: Secondary Status: Chronic Qualifiers: Hypertension type: essential hypertension Qualified Code(s): I10 - Essential (primary) hypertension (4) GERD (gastroesophageal reflux disease) Priority: Secondary Status: Chronic Qualifiers: Esophagitis presence: esophagitis presence not specified Qualified Code(s): K21.9 - Gastro-esophageal reflux disease without esophagitis (5) Anxiety and depression Priority: Secondary Status: Chronic (6) HLD (hyperlipidemia) Priority: Secondary Status: Chronic Qualifiers: Hyperlipidemia type: pure hypercholesterolemia Qualified Code(s): E78.00 - Pure hypercholesterolemia, unspecified; E78.0 - Pure hypercholesterolemia (7) Tobacco abuse Priority: Secondary Status: Chronic (8) DVT prophylaxis Priority: Secondary Status: Acute Hospital course: Mr. Telles is a 57 year old male PMH of HTN, GERD, anxiety, and bipolar depression presents from the ED with chief complaint of chest pain. Patient admitted to the hospital due to chest pain rule out ACS, and NAVIN. Patient managed with IV fluids for the NAVIN. Cardiology consulted recommended heparin drip x48 hours and added Isosorbide. Patient acute symptoms have resolved. Kidney function is back to baseline. And patient is chest pain free. Recommended to follow up with his cardiology within a week of hospital discharge. - Time Spent with Patient Total time spent providing and/or coordinating discharge services: Greater than 30 minutes (40) - Discharge Medications Prescriptions: Nitroglycerin 0.4 mg SL Q5MIN PRN 30 Days #30 tab.subl PRN Reason: Chest Pain Isosorbide MONOnitrate (24 HR) [Imdur] 30 mg PO DAILY 30 Days #30 tab.er.24h Home Medications: Armodafinil 250 mg PO DAILY PRN 09/23/17 [History] Brexpiprazole [Rexulti] 3 mg PO DAILY 09/23/17 [History] Fenofibrate Nanocrystallized [Triglide] 160 mg PO DAILY 09/23/17 [History] Ondansetron ODT [Zofran ODT] 8 mg PO QAM 09/23/17 [History] Pantoprazole Sodium 40 mg PO DAILY 09/23/17 [History] Pravastatin Sodium [Pravachol] 80 mg PO HS 09/23/17 [History] Ranitidine HCl [Acid Installation Helper] 150 mg PO BID 09/23/17 [History] Valsartan/Hydrochlorothiazide [Diovan Hct 160-12.5 mg Tab] 1 tab PO DAILY 09/23/17 [History] Vortioxetine Hydrobromide [Trintellix] 20 mg PO DAILY 09/23/17 [History] lamoTRIgine [Lamotrigine] 200 mg PO DAILY 09/23/17 [History] Aspirin 81 mg PO DAILY #30 tab.chew 09/24/17 [Rx] Loratadine [Allergy Relief] 10 mg PO DAILY 10/31/17 [History] Zolpidem Tartrate [Ambien Cr] 6.25 mg PO HS PRN 10/31/17 [History] Ticagrelor [Brilinta] 90 mg PO BID #60 tablet 11/01/17 [Rx] Isosorbide MONOnitrate (24 HR) [Imdur] 30 mg PO DAILY 30 Days #30 tab.er.24h 05/13/18 [Rx] Nitroglycerin 0.4 mg SL Q5MIN PRN 30 Days #30 tab.subl 05/13/18 [Rx] Allergies/Adverse Reactions: Allergy/AdvReac Type Severity Reaction Status Date / Time Sulfa (Sulfonamide AdvReac Hives Verified 09/23/17 11:56 Antibiotics) Date of admission: 05/12/18 00:40 Primary care physician: Hiren Vazquez MD Consults: 05/12/18 01:54 Consult to Cardiology [CONS] Routine Comment: Consulting Provider: Cardiology Edwige Reason for Consult: Patient admitted for atypical chest pain that began with exertion at work. Initial troponin 0.03. Second 0.08. Pain relieved with 3 nitroglycerin. Patient has history of left heart catheter in 10/22 with stent placement 1. Heparin gtt. running. Multiple risk factors including obesity, HLD, HTN, and current tobacco use. Call Completed: No - Constitutional Vitals: Temp Pulse Resp BP Pulse Ox 98.2 F 96 18 131/81 97 05/13/18 10:52 05/13/18 10:52 05/13/18 10:52 05/13/18 10:52 05/13/18 10:52 General appearance: Present: A&O X 3, pleasant, no acute distress, obese, answers questions appropriately Exam: Vitals: Reviewed. General: Alert and oriented x4. In no acute distress. Skin: Normal color, no rash, no lesions. HEENT: EOM, pupils equal, round and reactive. Cardiovascular: RRR, normal S1 & S2, no rubs, murmurs or gallops. No JVD. Pulse regular. Lungs: CTA b/l, no wheezes or crackles. Abdomen: Obese, soft, non-tender, no rigidity. Extremities: No deformity, no edema or tenderness, no joint swelling or clubbing. Neurological: Normal cognition and motor skills. Rest of the physical exam is non contributory - Patient Status Disposition: Home, Self-Care Condition: Good Functional capacity at discharge: independent ambulation Overall status at discharge: patient is back to baseline - Discharge Instructions Follow Up With: Hiren Vazquez MD [Primary Care Provider] - 05/20/18 11:30 am - Diet and Activity Activity: resume usual activities as tolerated Diet: low salt diet
[2018-05-13 14:30] VITALS: BP 121/74
--- NOTE | 2018-05-15 09:48 | Electrocardiograph Report ---
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
--- NOTE | 2018-05-16 22:32 | Event Note ---
Date of Encounter: 05/16/18 Time of Encounter: 22:30 Notified by [facility] supervisor of microbiology notifying her of patient with 1/2 blood cultures positive for gram positive rods, likely contaminate. Blood cultures were drawn due to fever that resolved, no antibiotics started during admission. No indication for antibiotics at this point.
== END 2018-05-13 17:45 | disposition home or self-care (01) ==
LOC: 2SOUTHHOLD 17:33 → EMEROOARM 17:33 → SUATTDRO 05-12 00:40 → 2SOUTHHOLD 05-12 01:18 → 3BNU 05-12 14:59
PROVIDERS: ADMIT Internal Medicine; ATTEND Internal Medicine